=== PATIENT | male | born 1960 | race Caucasian/White ===

== ENCOUNTER 2018-03-10 07:20 | Emergency (ER) | payer MEDICAID, SELFPAY ==
--- NOTE | 2018-03-10 07:20 | DT_ITS ---
This patient was seen during an EMR downtime March 10, 2018 - March 17, 2018. This patient may have a combination of paper and electronic documentation or all paper documentation. All documentation is viewable within the e-chart portion of [email or web address] for each patient visit.
--- NOTE | 2018-03-10 08:25 | RAD_ITS ---
STUDY: X-RAY CHEST REASON FOR EXAM: Male, 57 years old. Cough. Chest pain. Feels like something is stuck in the throat. TECHNIQUE: PA and lateral views of the chest. COMPARISON: None. FINDINGS: The lungs are well-expanded. There is minimal peribronchial thickening. There is no demonstrated pleural abnormality. Normal size heart. Normal mediastinum and lashon. Normal visualized pulmonary arteries. Normal visualized aortic arch and descending thoracic aorta. Normal visualized thoracic spine. Normal visualized ribs, clavicles, and shoulders. There is no demonstrated abnormality of the visualized soft tissue structures of the upper abdomen. RAD/Chest PA and Lateral IMPRESSION: Question bronchitis. Electronically Signed: Gilberto Monreal DO at 14:56 EDT Tel [phone], Service support ,
--- NOTE | 2018-03-10 09:35 | CT_ITS ---
STUDY: CT SOFT TISSUE NECK WITH CONTRAST REASON FOR EXAM: Male, 57 years old. Foreign body sensation RADIATION DOSAGE (If Supplied By Facility): CTDIvol = ( 23.10 ) mGy, DLP = ( 657.47 ) mGycm TECHNIQUE: The patient was scanned in a multi-detector CT scanner. High resolution transaxial imaging was performed following intravenous administration of 75ml ml of Isovue 300 contrast material. Sagittal and coronal images were reconstructed. Individualized dose optimization techniques were used for this CT. COMPARISON: None. FINDINGS: Normal bilateral parotid glands. 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 Normal bilateral parapharyngeal spaces. Normal bilateral carotid spaces. Normal bilateral sublingual and submandibular glands and spaces. Normal visualized nasopharynx. Normal retropharyngeal space. Normal perivertebral space. Normal visualized bilateral faucial tonsils. The visualized tongue, tongue base and oropharynx are normal. The visualized cervical lymph nodes (levels I-) are within normal size limits, and maintain normal morphology. There is no demonstrated solid or cystic mass lesion. There is no abnormal contrast enhancement. Normal epiglottis, bilateral vallecula and hypopharynx. The pre-epiglottic and paraglottic adipose spaces are normal. Normal visualized bilateral piriform sinuses, aryepiglottic folds, vocal cords, and arytenoid-cricoid articulations. Normal subglottic trachea. Normal bilateral lobes of the thyroid gland. Normal visualized pulmonary apices. Normal visualized paranasal sinuses. Normal visualized cervical spine. No evidence of foreign body. CT/Soft Tissue Neck WITH Contrast IMPRESSION: Normal enhanced CT examination of the soft tissues of the neck. No evidence of foreign body. Electronically Signed: Leland Bustamante DO at 16:56 EDT Tel , Service support ,
[2018-03-13 11:06] LABS: Glucose 92 mg/dL (74-106)
[2018-03-13 11:07] LABS: Anion Gap 5 (5-15); BUN 10 mg/dL (7-18); BUN/Creat Ratio 9.7 RATIO (10-20); Calcium,Total 8.2 mg/dL (8.5-10.1); Chloride 109 mmol/L (98-107); Creatinine, Serum 1.03 mg/dL (0.70-1.30); EST Glomerular Filtration Rate 79 mL/min (>60); Est Glom Filt Rate - Afr Amer 96 mL/min (>60); Sodium Level 140 mmol/L (136-145)
[2018-03-13 17:02] LABS: Absolute Lymphocyte Count 1.05 X10^3/ul (0.83-4.51); Absolute Neutrophil Count 2.8 X10^3/uL (2.0-7.7); Basophil# 0.03 X10^3/uL; Basophil% 0.6 % (0-1); Eosinophil# 0.17 X10^3/uL; Eosinophils% 3.5 % (0-5); Hematocrit 46.2 % (40-54); Hemoglobin 16.2 g/dl (13.0-16.5); Lymphocyte # 1.05 X10^3/ul (4.0); Lymphocyte % 21.6 % (19-41); Mean Corp Hgb Conc 34.9 g/gl (32-36); Mean Corpuscular Hgb 33.1 pg (27.0-32.0); Mean Corpuscular Volume 94.2 fL (80-94); Mean Platelet Vol. 10.6 fl (6.2-12.0); Monocyte# 0.78 X10^3/uL; Neutrophil # 2.83 X10^3/uL (2.7-7.7); Neutrophil % 58.3 % (47-70); POSITIVE COUNT NO; POSITIVE DIFFERENTIAL NO; POSITIVE MORPHOLOGY NO; Platelet Count 211 K/mm3 (150-450); RBC Distribution Width CV 12.4 % (11.6-14.6); Red Blood Count 4.89 M/mm3 (4.6-6.2); White Blood Count 4.9 K/mm3 (4.4-11.0)
[2018-03-13 17:52] LABS: D-Dimer Quantitative (DVT/PE) < 0.27 FEU/ug/m (0.27-0.49)
--- NOTE | 2018-05-05 08:25 | ED.DCSUM_ITS ---
- ER Visit Summary Date of Service: 05/05/18 Chief Complaint: [Foreign body sensation] History of Present Illness: The patient is a 57 M [presents the emergency department with complaint of foreign body sensation in his throat. Patient states he had some nondescript chest discomfort yesterday that was made worse with breathing and cough. Patient felt at times like he was gasping for air. Patient denies any chest pain currently. Patient states that he is able to swallow water and is able to eat. 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 Patient has had a cough for about 3 weeks. Last night patient coughed and vomited and since then has had the sensation like there was something stuck in his throat. Patient denies any fevers. Patient's cough is been dry. Patient also states that he has had some pain in his right mid back for about 4 5 days as well. Patient not sure if he hurt his back working.] Physical Examination: [HEENT-PERRLA, EOMI. Cranial nerves II through XII grossly intact. TMs clear. Mucous membranes moist. No adenopathy. Cardiovascular-regular rate and rhythm without murmur or ectopy Lungs-clear to auscultation, chest wall stable without crepitus or subcu emphysema Abdomen-normoactive bowel sounds, soft, nontender, no rebound or rigidity, no peritoneal signs. Back exam-patient has no tenderness to palpation over the thoracic or lumbar spine. I am unable to reproduce patient's pain with palpation of his back. Patient has negative straight leg raises. Patient has normal deep tendon reflexes of plus 2 out of 4 bilaterally at the patella and Achilles. Patient has normal sensation. Extremities-intact ?4, normal range of motion, normal pulses, atraumatic] Test Results: [EKG obtained on arrival showed a sinus rhythm with a ventricular rate of 63 bpm. CBC with differential was unremarkable. Chemistries unremarkable. Troponin was less than 0.015. D-dimer was 0.18. Chest x-ray showed nothing acute. CT scan of soft tissue neck was unremarkable.] Emergency Department Course and Treatment: [Patient received 1 mg of Ativan IV and did have some improvement in symptomatology.] Treatment Plan: [Patient advised to follow-up with his primary care physician within next 3-5 days. Patient will be given a prescription for Duane Everett for cough and Zithromax.. Patient also referred to Dr. Sebastian who was on-call for pulmonology.] Disposition: [Discharged home in stable condition. Patient advised to return if increasing shortness of breath or condition should worsen in any way.] Impression: [Upper respiratory infection Foreign body sensation throat] This note was generated with [employer] dictation software. It may contain incorrect words, spelling, and punctuation that were not noted in review of the chart prior to signing ED Disposition - Plan for ED Patient: Disposition: Home or Assisted Living
== END 2018-03-10 10:20 | disposition home or self-care (01) ==
LOC: ED 03-12 11:33
PROVIDERS: Emergency Provider Emergency Medicine
DX: R09.89 Other specified symptoms and signs involving the circulatory and respiratory systems (principal); J06.9 Acute upper respiratory infection, unspecified; M54.9 Dorsalgia, unspecified
CPT/HCPCS: 70491; 71046; 80048; 84484; 85025; 85379; 93005; 96361; 96374; 99283; J7030; Q9967; A4216

== ENCOUNTER 2022-07-28 15:42 | Emergency (ER) | payer OTHER, MEDICAID, SELFPAY ==
[2022-07-28 15:43] VITALS: BP 128/79; PULSE 73; RESP 16; TEMP 36.5; O2SAT 99; BMI 29.0
[2022-07-28] MEDS: Ibuprofen 600 MG Tablet PO (16:03)
[2022-07-28] MEDS: predniSONE 20 MG Tablet 60 MG PO (16:03)
--- NOTE | 2022-07-28 16:12 | RAD_ITS ---
STUDY: X-RAY - THORACIC SPINE REASON FOR EXAM: Male, 61 years old. Right shoulder and neck pain for weeks. Pain is increased since the chiropractor 2 days ago. TECHNIQUE: 3 view(s) of the thoracic spine were obtained. COMPARISON: None. FINDINGS: Normal kyphosis of the thoracic spine. There is no substantial scoliosis. There is demineralization of the thoracic spine with endplate spondylosis. There is multilevel disc space narrowing of the thoracic spine. There is no evidence of acute fracture or loss of vertebral axial height. There is maintenance of normal alignment. The soft tissue structures are unremarkable. RAD/Thoracic Spine 3 Views IMPRESSION: Degenerative changes of the lumbar spine without acute fracture or subluxation. Electronically Signed: Gilberto Monreal DO at 16:28 EDT ,
--- NOTE | 2022-07-28 16:16 | EDS_ITS ---
HPI History of Present Illness Chief Complaint: Back Informant: patient and spouse/S.O. Narrative Narrative: Nontraumatic upper back pain and neck pain for the past month. Saw chiropractor a week ago had manipulation done neck is improved. Upper back still has d iscomfort. Reports pain down to his right elbow. No paresthesias or weakness. Taking [id number]-dffuamm back pain medicines. No history of gastric ulcers or kidney problems. Denies diabetes. Denies past medical history. Denies any difficulty walking. Prior similar symptoms: No PFSH PFSH Home Medications chlorpromazine 25 mg tablet 25 mg PO Q6H PRN hiccups #20 tabs 07/28/22 [Rx Last Taken Unknown] ibuprofen 600 mg tablet 600 mg PO 4X/DAY PRN Pain Or Fever #20 tabs 07/28/22 [Rx Last Taken Unknown] prednisone 20 mg tablet 60 mg PO DAILY #15 tabs 07/28/22 [Rx Last Taken Unknown] Allergy/AdvReac Type Severity Reaction Status Date / Time No Known Allergies Allergy Verified 07/28/22 15:42 Social History Smoking Status: Never smoker ROS ROS ED Constitutional Constitutional ED: Denies chills, fever(s) or sweats Eyes Eyes: Denies change in vision ENT ENT ED: Denies dysphagia or sore throat Cardiovascular Cardiovascular: Denies chest pain, leg edema, palpitations or racing heartbeat Respiratory/Chest Respiratory/Chest: Denies cough, dyspnea or dyspnea on exertion Gastrointestinal Gastrointestinal: Denies abdominal pain, diarrhea, nausea or vomiting Genitourinary Genitourinary ED: Denies dysuria, hematuria or urinary frequency Musculoskeletal Musculoskeletal: Reports back pain; Denies extremity pain or neck pain Integumentary Denies rash or wounds Neurologic Neurologic: Denies headache(s), paresthesias or weakness EXAM Physical Exam Const Vital Signs: 07/28/22 15:43 07/28/22 17:23 Temperature 97.7 F L Temperature Source Temporal Pulse Rate 73 Respiratory Rate 16 18 Blood Pressure 128/79 H Blood Pressure Mean 95 Pulse Ox 99 Oxygen Delivery Method Room Air Positive well nourished and well developed General Appearance ED: well developed and NAD HEENT Reports moist mucous membranes normocephalic and atraumatic Eyes PERRL, EOMs intact bilaterally and conjunctivae normal General Eye ED: Yes normal appearance of both eyes Neck no lymphadenopathy and supple Neck Narrative: Negative Spurling's test bilaterally. General: Negative for tenderness Chest Wall Chest: Negative for tenderness Resp normal respiratory effort and normal air movement Effort and Inspection: symmetric chest movement; Negative for respiratory distress Cardio regular rate, regular rhythm and no murmurs Peripheral Pulses: pulses 2+ throughout GI normal to inspection, nondistended, normoactive bowel sounds and non-tender Palpation: Negative for guarding or rebound tenderness present Back/Spine no CVA tenderness and no thoracic nor lumbar tenderness Back/Spine Narrative: No midline tenderness is parathoracic tenderness T1-T2 on the right side.. Extremity normal to inspection General Extremety ED: Negative for edema or tenderness General Extremity: Negative for edema Neuro oriented x3 and no sensory deficits noted Sensorium / Orientation: awake and alert Skin no rashes or lesions noted and no wounds MDM MDM MDM Narrative Medical decision making narrative: Nontraumatic upper thoracic pain. Tingling to his arm and with no weakness. No cervical tenderness currently. Not likely radicular pain from the back is no nerves innervates this area. Treated with ibuprofen and prednisone. 3 view thoracic x-rays obtained notes degenerative changes. Reevaluation had hiccups. No chest pains. Treated with Thorazine. Prescriptions for symptom control outpatient follow-up. Per significant other she is going to try to get him in with her PCP. Radiography Diagnostic Testing: Clinical Impression(s) from Imaging Studies Thoracic Spine X-Ray 07/28/22 16:12 IMPRESSION: Degenerative changes of the lumbar spine without acute fracture or subluxation. Electronically Signed: Gilberto Monreal DO at 16:28 EDT Reading Location ID and State: [address] [place] [address] Tel [phone], Service support , Discharge Plan Triage Chief Complaint: Back ED Provider: [facility] Dx/Rx/DC Orders Clinical Impression: Back pain, thoracic, Hiccup Instructions: ED Back Pain (Acute or Chronic), ED Hiccups Prescriptions: New prednisone 20 mg tablet 60 mg PO DAILY Qty: 15 0RF ibuprofen 600 mg tablet 600 mg PO 4X/DAY PRN (Reason: Pain Or Fever) Qty: 20 0RF chlorpromazine 25 mg tablet 25 mg PO Q6H PRN (Reason: hiccups) Qty: 20 0RF Primary Care Provider: NOT,DEFINED Referrals: NOT,DEFINED [Primary Care Provider] - Activity Restrictions/Additional Instructions: Thoracic x-ray notes degenerative changes. Take medications as prescribed. Follow-up with your doctor as an outpatient for reevaluation peer return if any worsening symptoms. Disposition Disposition: Home, Self Care Discharge Date/Time: 07/28/22 17:30
[2022-07-28 17:23] VITALS: RESP 18
[2022-07-28] MEDS: ChlorproMAZINE 25 MG Tablet PO (17:26)
== END 2022-07-28 17:30 | disposition home or self-care (01) ==
PROVIDERS: Emergency Provider Emergency Medicine; Visit Provider Emergency Medicine
DX: M54.6 Pain in thoracic spine (principal); R06.6 Hiccough
CPT/HCPCS: 72072; 99283

== ENCOUNTER 2024-09-21 21:10 | Inpatient (IN) | payer OTHER, SELFPAY ==
[2024-09-21 21:10] VITALS: BP 111/50; PULSE 80; RESP 26; TEMP 36.3; O2SAT 98
--- NOTE | 2024-09-21 21:12 | RAD_ITS ---
EXAM: XR LEFT TIBIA AND FIBULA, 2 VIEWS CLINICAL INDICATION: fall TECHNIQUE: Frontal and lateral views of the left tibia and fibula. COMPARISON: No relevant prior studies available. FINDINGS: BONES/JOINTS: A comminuted fracture of the distal left tibial is identified, with multiple fracture lines paralleling the long axis of the tibia; the fracture line disrupts the distal articulating surface of the tibia, with proximal extension of multiple fracture lines into the metaphysis and distal diaphysis. Lateral view shows 2.5 mm diastases of distal tibial fracture fragments, and with approximately 1.5 mm step off along the distal tibial articulating surface. No fibular fracture is identified. The clear space between the distal tibia and fibula is not abnormally widened. Joint space is preserved. There is no dislocation. Small plantar calcaneal spur is present. No sclerotic or destructive changes observed. SOFT TISSUES: Soft tissue swelling noted anterior to the ankle. No radiopaque foreign body. RAD/Tibia & Fibula 2 Views IMPRESSION: 1. Intra-articular fracture of the distal left tibia with slight step-off along the distal tibial articulating surface. 2. No distal fibular fracture or ankle dislocation identified. Electronically Signed: Kishor Zepeda MD at 22:24 EST ,
--- NOTE | 2024-09-21 22:33 | EX.ED.GENINJ ---
HPI History of Present Illness Chief Complaint: Fall Informant: patient and spouse/S.O. Narrative Narrative: Brought in by private vehicle her spouse who left lower leg injury. Jumped off a 2 foot workbench in the garage 1 hour prior to arrival. Crawled into the house. He fell on his elbow. No head injuries. States may had a fracture of the thumb in the past. Does not follow an orthopedist. No allergies. Prior similar symptoms: No PFSH PFSH Home Medications ?Medication ?Instructions ?Recorded ?Last Taken ?Type NK 09/22/24 Unknown History Allergy/AdvReac Type Severity Reaction Status Date / Time No Known Allergies Allergy Verified 09/21/24 21:12 Social History Smoking Status: Never smoker ROS ROS ED Constitutional Constitutional ED: Denies chills, fever(s) or sweats Eyes Eyes: Denies change in vision ENT ENT ED: Denies dysphagia or sore throat Cardiovascular Cardiovascular: Denies chest pain, leg edema, palpitations or racing heartbeat Respiratory/Chest Respiratory/Chest: Denies cough, dyspnea or dyspnea on exertion Gastrointestinal Gastrointestinal: Denies abdominal pain, diarrhea, nausea or vomiting Genitourinary Genitourinary ED: Denies dysuria, hematuria or urinary frequency Musculoskeletal Musculoskeletal: Reports extremity pain; Denies back pain or neck pain Integumentary Reports Abrasions; Denies rash or wounds Neurologic Neurologic: Denies headache(s), paresthesias or weakness EXAM Physical Exam Const Vital Signs: 09/21/24 21:10 09/21/24 22:46 09/21/24 23:10 Temperature 97.4 F L Temperature Source Temporal Pulse Rate 80 70 Respiratory Rate 26 H 18 Respiratory Effort Normal Non-Labored Respiratory Depth Normal Respiratory Pattern Normal Blood Pressure 111/50 L 110/78 Blood Pressure Mean 70 88 Pulse Ox 98 96 Oxygen Delivery Method Room Air Room Air Room Air 09/22/24 01:00 Temperature Temperature Source Pulse Rate 92 Respiratory Rate 16 Respiratory Effort Respiratory Depth Respiratory Pattern Blood Pressure 110/71 Blood Pressure Mean 84 Pulse Ox 92 Oxygen Delivery Method Room Air Positive well nourished and well developed Constitutional Narrative: GCS 15 General Appearance ED: well developed HEENT Reports moist mucous membranes normocephalic and atraumatic Eyes EOMs intact bilaterally and conjunctivae normal General Eye ED: Yes normal appearance of both eyes Neck no lymphadenopathy and supple General: Negative for tenderness Chest Wall inspection of chest normal and palpation of chest normal Chest: Negative for tenderness Resp normal respiratory effort and normal air movement Effort and Inspection: symmetric chest movement; Negative for respiratory distress Cardio regular rate, regular rhythm and no murmurs Peripheral Pulses: pulses 2+ throughout GI normal to inspection, nondistended, normoactive bowel sounds and non-tender Palpation: Negative for guarding or rebound tenderness present Back/Spine no CVA tenderness and no thoracic nor lumbar tenderness Extremity Extremity Narrative: Left lower extremity: Negative logroll no knee tenderness no deformities or swelling to the distal leg with tenderness. Skin intact. No foot tenderness. Soft compartments calf and thigh. Right lower extremity: Nontender. Pulse intact distally. Upper extremities: Full range of motion all tenderness. There is abrasion noted to the left elbow with no swelling or pain. Pulses intact distally. General Extremety ED: Yes tenderness; Negative for edema General Extremity: Negative for edema Neuro oriented x3 and no sensory deficits noted Sensorium / Orientation: awake and alert Skin no rashes or lesions noted and no wounds MDM MDM MDM Narrative Medical decision making narrative: Interventions / MDM: Differential diagnosis: Closed tibia fracture, fall Diagnosis considered but do not suspect: No clinical compartment syndrome My EKG interpretation: N/A Imaging independently reviewed and interpreted by myself: Left tib-fib 2 views: Distal tibial fracture intra-articular with no displacement, slight step-off of the distal tibia articular surface per radiology. 1 view oblique ankle: No acute process. CTA lower extremity per radiology multiple Linear fractures extend superior anterior and posterior cortex of distal fibula and lateral cortex of the distal tibia. External documents reviewed: N/A Test considered but not ordered:N/A ED course: Due to busy department, nursing triage obtained tib-fib films noting the fracture. Patient ordered for IM morphine. Will prep for splinting. Abrasions to left elbow no other injuries. No bony tenderness to warrant any imaging. Splinting: Nursing assistance. Nylon sleeve was placed, Kerlix dressing increased padding at the ankle region. A 5 inch posterior plaster splint along with 2 inch stirrups were placed for stabilization. Splinting was stabilized with Zbigniew wrap. Neurovascular intact post splinting. After splinting oblique ankle films were added, obscured from padding however no clear disruption noted. He was given additional IM morphine prior to x-rays. Patient had pain anytime he moved his leg therefore difficult to send home with nonweightbearing and sees having pain with movement. IV established with labs. I discussed with on-call lead refinery supervisor Dr. Veloz will admit under his service for further pain control and further management inpatient. Re-evaluation: stable Disposition discussed with patient/family/significant other: Patient Case discussed with consulting clinician: N/A This note was generated with [employer] dictation software. It may contain incorrect words, spelling, and punctuation that were not noted in checking the note before signing. Lab Data Attestation: I reviewed the patient's lab results. Labs: Laboratory Results - last 24 hr 09/22/24 01:00 WBC 14.0 H RBC 4.87 Hgb 16.3 Hct 46.3 MCV 95.1 H MCH 33.5 H MCHC 35.2 RDW Std Deviation 42.1 RDW Coeff of Arturo 12.1 Plt Count 242 MPV 9.7 Immature Gran % (Auto) 0.300 Neut % (Auto) 81.7 H Lymph % (Auto) 10.9 L [place] % (Auto) 6.3 Eos % (Auto) 0.4 Baso % (Auto) 0.4 Absolute Neuts (auto) 11.5 H Absolute Lymphs (auto) 1.53 Nucleated RBC % 0 PT 14.8 INR 1.2 APTT 25.6 Sodium 141 Potassium 4.1 Chloride 112 H Carbon Dioxide 24.0 Anion Gap 6 BUN 17 Creatinine 1.22 Estim Creat Clear Calc 70.22 Est GFR (MDRD) Af Amer 77 Est GFR (MDRD) Non-Af 64 BUN/Creatinine Ratio 13.9 Glucose 114 H Calcium 8.8 Blood Type O NEGATIVE Antibody Screen NEGATIVE Radiography Diagnostic Testing: Clinical Impression(s) from Imaging Studies Tibia/Fibula X-Ray 09/21/24 21:12 IMPRESSION: 1. Intra-articular fracture of the distal left tibia with slight step-off along the distal tibial articulating surface. 2. No distal fibular fracture or ankle dislocation identified. Electronically Signed: Kishor Zepeda MD at 22:24 EST , Ankle X-Ray 09/21/24 23:49 IMPRESSION: undefined Lower Extremity CT 09/22/24 01:42 IMPRESSION: Multiple linear fracture lines of the distal tibia , disrupting the distal tibial articulating surface, and with mild step off along the articulating surface of the tibial plafond. Electronically Signed: Kishor Zepeda MD at 5:35 EST , Discharge Plan Dx/Rx/DC Orders Clinical Impression: Fracture of tibia, left, closed, Fall, Leg pain, left Disposition Disposition: Acute Care Hospital [facility] Discharge Date/Time: 09/22/24 02:29
[2024-09-21] MEDS: Morphine 4 MG/ML Syringe IM ×2 (22:43→23:30)
[2024-09-21 23:10] VITALS: BP 110/78; PULSE 70; RESP 18; O2SAT 96
[2024-09-21 23:29] VITALS: BMI 29.5
--- NOTE | 2024-09-21 23:49 | RAD_ITS ---
EXAM: XR LEFT ANKLE, 2 VIEWS CLINICAL INDICATION: fracture -- oblique view TECHNIQUE: Frontal and lateral views of the left ankle. COMPARISON: Left ankle and left tibia/fibular radiographs of this date. FINDINGS: Single view of the ankle shows interval placement of cast material, which obscures osseous anatomic detail. Ankle joint space is maintained. No dislocation is noted. No malalignment of the distal tibial fracture fragments is identified on this single view, when allowing for the overlying cast material. Electronically Signed: Kishor Zepeda MD at 1:45 EST , RAD/Ankle 2 Views IMPRESSION: undefined
[2024-09-22] VITALS (13 sets, daily range): BP systolic 99–132; BP diastolic 61–79; PULSE 67–93; RESP 14–18; TEMP 36.1–37.3; O2SAT 92–98; BMI 28.5; BMI 28.4
[2024-09-22 01:15] LABS: Absolute Lymphocyte Count 1.53 X10^3/uL (0.83-4.51); Absolute Neutrophil Count 11.5 X10^3/uL (2.0-7.7); Basophil# 0.05 X10^3/uL; Basophil% 0.4 % (0-1); Eosinophil# 0.06 X10^3/uL; Eosinophils% 0.4 % (0-5); Hematocrit 46.3 % (40-54); Hemoglobin 16.3 g/dL (13.0-16.5); Lymphocyte # 1.53 X10^3/ul (0.83-4.51); Lymphocyte % 10.9 % (19-41); Mean Corp Hgb Conc 35.2 g/dL (32-36); Mean Corpuscular Hgb 33.5 pg (27.0-32.0); Mean Corpuscular Volume 95.1 fL (80-94); Mean Platelet Vol. 9.7 fl (6.2-12.0); Monocyte# 0.89 X10^3/uL; Monocyte% 6.3 % (0-10); NRBC Flagged by Analyzer 0 % (0-5); Neutrophil # 11.45 X10^3/uL (2.7-7.7); Neutrophil % 81.7 % (47-70); Platelet Count 242 K/mm3 (150-450); RBC Distribution Width CV 12.1 % (11.6-14.6); RBC Distribution Width SD 42.1 fl (35.1-43.9); Red Blood Count 4.87 M/mm3 (4.6-6.2)
[2024-09-22 01:25] LABS: International Normalized Ratio 1.2; Prothrombin Time (Protime)PT. 14.8 SECONDS (11.7-14.9)
[2024-09-22 01:26] LABS: Partial Thromboplast Time 25.6 Seconds (24.1-36.2)
[2024-09-22 01:38] LABS: Anion Gap 6 (5-15); BUN 17 mg/dL (7-18); BUN/Creat Ratio 13.9 RATIO (10-20); Calcium,Total 8.8 mg/dL (8.5-10.1); Chloride 112 mmol/L (98-107); Creatinine, Serum 1.22 mg/dL (0.70-1.30); EST Glomerular Filtration Rate 64 mL/min (>60); Est Glom Filt Rate - Afr Amer 77 mL/min (>60); Estimated Creatinine Clearance 70.22 ml/min; Glucose 114 mg/dL (74-106); Potassium 4.1 mmol/L (3.5-5.1); Sodium Level 141 mmol/L (136-145)
--- NOTE | 2024-09-22 01:42 | CT_ITS ---
EXAM: CT LEFT LOWER EXTREMITY WITHOUT INTRAVENOUS CONTRAST CLINICAL INDICATION: fracture -- Include distal half of tib-fib into ankle TECHNIQUE: Helically acquired images were obtained of the left lower extremity without intravenous contrast. 2-D reformats were performed by the technologist. This CT exam was performed using one or more of the following dose reduction techniques: automated exposure control, adjustment of the mA and/or kV according to patient size, and/or use of iterative reconstruction technique. RADIATION DOSE: Total DLP: 507.27 mGy-cm. COMPARISON: Ankle radiographs of 09/21/2024. FINDINGS: BONES/JOINTS: Multiple fracture lines extend through the distal tibia, paralleling the long axis of the tibia. Numerous fracture lines disrupt distal tibial articulating surface of the tibial plafond ; the most prominent fracture line extends obliquely through the distal tibia, entering the joint space at the junction of the medial malleolus and tibial plafond, and with up to 5.5 mm separation of the fracture fragments. There is slight cortical step off along the articulating surface at this level. S A linear fracture line extends into the more posterior aspect of the distal tibial articulating surface, with 1 mm step off along the articulating surface at this level. Linear fracture lines extend superiorly into the anterior and posterior cortex of the distal tibial shaft as well as into the lateral cortex of the distal tibial shaft. The distal fibula is intact. The distal tibial-fibular synchondrosis is not abnormally widened. No avulsion fracture of the medial malleolus is noted. The talar dome is intact. Ankle joint space is preserved/symmetric. A small plantar calcaneal spur is noted. No calcaneal fracture is seen. The cuboid, cuneiforms, and tarsal navicular are intact. No dislocation is noted. SOFT TISSUES: Soft tissue swelling surrounds the ankle. Cast material is in place about the ankle. CT/Extremity Lower without Contra IMPRESSION: Multiple linear fracture lines of the distal tibia , disrupting the distal tibial articulating surface, and with mild step off along the articulating surface of the tibial plafond. Electronically Signed: Kishor Zepeda MD at 5:35 EST ,
[2024-09-22] MEDS: HYDROmorphone 0.5 MG/0.5 ML SYRINGE IV (02:15)
--- NOTE | 2024-09-22 02:16 | HP.PCM_ITS ---
[facility] - General General Date of Admission: 09/22/24 Chief Complaint: fractured ankle, lower leg right HPI Narrative KALIE ANDREW, is a 64 M who presents with comminuted distal tibial fx and ankle fracture of the right lower leg from a mechanical fall after jumping off his work bench. Patient healthy and in severe pain and will need surgery to stabilize the fracture of the right lower leg PFSH Home Medications ?Medication ?Instructions ?Recorded ?Last Taken ?Type NK 09/22/24 Unknown History Allergy/AdvReac Type Severity Reaction Status Date / Time No Known Allergies Allergy Verified 09/21/24 21:12 no significant family history Social History Smoking Status: Never smoker Vital Signs Vital Signs Vital Signs: 09/21/24 21:10 09/21/24 22:46 09/21/24 23:10 Temperature 97.4 F L Temperature Source Temporal Pulse Rate 80 70 Respiratory Rate 26 H 18 Respiratory Effort Normal Non-Labored Respiratory Depth Normal Respiratory Pattern Normal Blood Pressure 111/50 L 110/78 Blood Pressure Mean 70 88 Pulse Ox 98 96 Oxygen Delivery Method Room Air Room Air Room Air 09/22/24 01:00 09/22/24 02:06 Temperature 99.1 F Temperature Source Pulse Rate 92 89 Respiratory Rate 16 16 Respiratory Effort Respiratory Depth Respiratory Pattern Blood Pressure 110/71 99/74 Blood Pressure Mean 84 82 Pulse Ox 92 93 Oxygen Delivery Method Room Air Weight Weight: 93.4 kg Body Mass Index (BMI) 29.5 Physical Exam Const alert and oriented x3 HEENT normocephalic, head/scalp atraumatic, hearing grossly normal bilaterally, external ears normal, EAC's normal, TM's normal bilaterally, external nose normal, nasal mucous membranes and turbinates normal, moist oral mucous membranes, oropharynx normal, dentition normal and gingiva normal Eyes PERRL, EOMs intact bilaterally, conjunctivae normal, no scleral icterus, no papilledema, normal visual san by confrontation and fundi normal bilaterally Chest inspection of chest normal, palpation of chest normal, inspection of breasts normal and palpation of breasts normal Resp normal respiratory effort, normal air movement, no retractions, no use of accessory muscles, clear to auscultation bilaterally and percussion normal Cardio regular rate, regular rhythm, S1 normal heart sound, S2 normal heart sound, no murmurs, no rub, no gallops, no clicks, no JVD, peripheral pulses 2+ throughout and diaphoretic Results Lab / Micro Data 09/22/24 01:00 09/22/24 01:00 Labs: Laboratory Results - last 24 hr 09/22/24 01:00: WBC 14.0 H, RBC 4.87, Hgb 16.3, Hct 46.3, MCV 95.1 H, MCH 33.5 H , MCHC 35.2, RDW Std Deviation 42.1, RDW Coeff of Arturo 12.1, Plt Count 242, MPV 9.7, Immature Gran % (Auto) 0.300, Neut % (Auto) 81.7 H, Lymph % (Auto) 10.9 L, [place] % (Auto) 6.3, Eos % (Auto) 0.4, Baso % (Auto) 0.4, Absolute Neuts (auto) 11.5 H, Absolute Lymphs (auto) 1.53, Nucleated RBC % 0, PT 14.8, INR 1.2, APTT 25.6, Sodium 141, Potassium 4.1, Chloride 112 H, Carbon Dioxide 24.0, Anion Gap 6, BUN 17, Creatinine 1.22, Estim Creat Clear Calc 70.22, Est GFR (MDRD) Af Amer 77, Est GFR (MDRD) Non-Af 64, BUN/Creatinine Ratio 13.9, Glucose 114 H, Calcium 8.8, Blood Type O NEGATIVE, Antibody Screen NEGATIVE Imaging Radiology Impression Tibia/Fibula X-Ray 09/21/24 21:12 IMPRESSION: 1. Intra-articular fracture of the distal left tibia with slight step-off along the distal tibial articulating surface. 2. No distal fibular fracture or ankle dislocation identified. Electronically Signed: Kishor Zepeda MD at 22:24 EST , Ankle X-Ray 09/21/24 23:49 IMPRESSION: undefined Assessment & Plan Assessment/Plan (1) Pilon fracture of right tibia: PLAN: plan for orif and closed reduction with internal fixation right lower leg saturday will stabilize with external fixation with possible open outpatient (2) Pain in right lower leg: (3) Fall (on)(from) incline, initial encounter:
[2024-09-22] MEDS: oxyCODONE HCl Cr 10 MG Tablet 20 MG PO ×3 (02:46→22:40)
[2024-09-22] MEDS: Acetaminophen 500 MG Tablet 1000 MG PO ×3 (05:42→22:40)
[2024-09-22] MEDS: HYDROmorphone 1 MG/ML Syringe IV (05:47)
[2024-09-22 07:00] LABS: Absolute Neutrophil Count 6.6 X10^3/uL (2.0-7.7); Basophil# 0.05 X10^3/uL; Basophil% 0.5 % (0-1); Eosinophil# 0.06 X10^3/uL; Eosinophils% 0.7 % (0-5); Hematocrit 44.3 % (40-54); Hemoglobin 15.9 g/dL (13.0-16.5); Lymphocyte % 18.4 % (19-41); Mean Corp Hgb Conc 35.9 g/dL (32-36); Mean Corpuscular Hgb 34.1 pg (27.0-32.0); Mean Corpuscular Volume 95.1 fL (80-94); Mean Platelet Vol. 9.7 fl (6.2-12.0); Monocyte# 0.79 X10^3/uL; Monocyte% 8.6 % (0-10); NRBC Flagged by Analyzer 0 % (0-5); Neutrophil # 6.59 X10^3/uL (2.7-7.7); Neutrophil % 71.5 % (47-70); Platelet Count 231 K/mm3 (150-450); RBC Distribution Width SD 42.5 fl (35.1-43.9); Red Blood Count 4.66 M/mm3 (4.6-6.2); White Blood Count 9.2 K/mm3 (4.4-11.0)
[2024-09-22] MEDS: oxyCODONE 5 MG Tablet 10 MG PO (07:48)
[2024-09-22 08:00] LABS: Anion Gap 3 (5-15); BUN 14 mg/dL (7-18); BUN/Creat Ratio 14.1 RATIO (10-20); Calcium,Total 8.6 mg/dL (8.5-10.1); Chloride 112 mmol/L (98-107); Creatinine, Serum 0.99 mg/dL (0.70-1.30); EST Glomerular Filtration Rate 81 mL/min (>60); Est Glom Filt Rate - Afr Amer 97 mL/min (>60); Estimated Creatinine Clearance 85.25 ml/min; Glucose 103 mg/dL (74-106); Sodium Level 139 mmol/L (136-145)
[2024-09-22] MEDS: 0.9% Saline Lock 10 ML Syringe IV ×3 (10:01→22:45)
[2024-09-22] MEDS: Ondansetron 4 MG/2 ML Vial IV ×3 (10:01→22:44)
[2024-09-22] MEDS: Enoxaparin 40 MG/0.4 ML Syringe SC (10:03)
--- NOTE | 2024-09-22 10:30 | CASEMGMT ---
NANCY ALMEIDA Assessment: Face to Face with pt for initial transition planning/care coordination assessment. RN JUAN PABLO introduced self and role at [facility], pt voices understanding and consents to assessment. Pt is A&O x4 and answers all questions appropriately at this time. Pt lying in bed in no distress. Care providers, pharmacy, and demographics verified/updated. Admitting Dx: Lower leg ankle right closed fracture Strata Score: 1 PCP:Jania Specialists:Denies Preferred Pharmacy:[facility] Insurance: MMO Prescription Benefit: yes LNOK: Harriet Cowart, Living Arrangements: Pt lives with , niece and son in a single story home with a ramp to enter or 3 steps with a rail. Pt reports he is typically I in ADLs and denies concerns at home. Transportation: Pt drives self and denies concerns with transportation. DME:w/c, shower chair HHC/SNF: Denies hx of Pt states no concerns with going home at time of dc. Pt to have MEDIA SENIOR RECRUITER CM to follow therapy post surgery for recommendations and DME needs. Provided pt with a verbal local in network list of DME companies should pt need DME, pt chose [employer]. Pt states no further concerns/needs. Advised pt to ask CM if any further question/concerns/needs arise, voices understanding. Pt Goal: Home Plan: Home pending surgery, therapy evals and course of hospitalization. Follow for DME needs. Soraya CRUZ CM
--- NOTE | 2024-09-22 18:35 | HP.PCM_ITS ---
HPI - General General Date of Admission: 09/22/24 Chief Complaint: fractured ankle, lower leg left HPI Narrative KALIE ANDREW, is a 64 M who presents pilon fracture of the tibia post fall from work bench [facility] Home Medications ?Medication ?Instructions ?Recorded ?Last Taken ?Type NK 09/22/24 Unknown History Allergy/AdvReac Type Severity Reaction Status Date / Time No Known Allergies Allergy Verified 09/21/24 21:12 Family History no significant family his Social History Smoking Status: Never smoker Vital Signs Vital Signs Vital Signs: 09/21/24 21:10 09/21/24 22:46 09/21/24 23:10 Temperature 97.4 F L Temperature Source Temporal Pulse Rate 80 70 Pulse Strength Respiratory Rate 26 H 18 Respiratory Effort Normal Non-Labored Respiratory Depth Normal Respiratory Pattern Normal Blood Pressure 111/50 L 110/78 Blood Pressure Mean 70 88 Blood Pressure Source Blood Pressure Position Blood Pressure Location Pulse Ox 98 96 Oxygen Delivery Method Room Air Room Air Room Air 09/22/24 01:00 09/22/24 02:06 09/22/24 02:42 Temperature 99.1 F Temperature Source Pulse Rate 92 89 Pulse Strength Respiratory Rate 16 16 Respiratory Effort Respiratory Depth Respiratory Pattern Blood Pressure 110/71 99/74 Blood Pressure Mean 84 82 Blood Pressure Source Blood Pressure Position Blood Pressure Location Pulse Ox 92 93 Oxygen Delivery Method Room Air Room Air 09/22/24 02:53 09/22/24 09:00 09/22/24 10:27 Temperature 98.5 F 97.9 F Temperature Source Oral Oral Pulse Rate 93 84 Pulse Strength Normal (2+) Respiratory Rate 18 14 Respiratory Effort Respiratory Depth Respiratory Pattern Blood Pressure 132/61 H 116/77 Blood Pressure Mean 84 90 Blood Pressure Source Monitor Monitor Blood Pressure Position Semi-Fowlers Semi-Fowlers Blood Pressure Location Right Arm Left Arm Pulse Ox 94 96 Oxygen Delivery Method Room Air Room Air 09/22/24 10:29 09/22/24 16:16 Temperature 98.6 F Temperature Source Oral Pulse Rate 91 Pulse Strength Respiratory Rate 18 Respiratory Effort Normal Non-Labored Respiratory Depth Normal Respiratory Pattern Normal Blood Pressure 119/75 Blood Pressure Mean 89 Blood Pressure Source Monitor Blood Pressure Position Semi-Fowlers Blood Pressure Location Right Arm Pulse Ox 98 Oxygen Delivery Method Room Air Room Air Weight Weight: 90.2 kg Body Mass Index (BMI) 28.4 Physical Exam Narrative alert active and oriented, has a spinal and plan for surgical correction left foot and plan for closed redutction andpinnin of the left leg Const alert, oriented x3, no apparent distress, average body habitus, no limitations, healthy appearing and well nourished Extremity Extremity Narrative: let tibia comminuted fx left lower leg Results Lab / Micro Data 09/22/24 06:23 09/22/24 06:23 Labs: Laboratory Results - last 24 hr 09/22/24 01:00: WBC 14.0 H, RBC 4.87, Hgb 16.3, Hct 46.3, MCV 95.1 H, MCH 33.5 H , MCHC 35.2, RDW Std Deviation 42.1, RDW Coeff of Arturo 12.1, Plt Count 242, MPV 9.7, Immature Gran % (Auto) 0.300, Neut % (Auto) 81.7 H, Lymph % (Auto) 10.9 L, [place] % (Auto) 6.3, Eos % (Auto) 0.4, Baso % (Auto) 0.4, Absolute Neuts (auto) 11.5 H, Absolute Lymphs (auto) 1.53, Nucleated RBC % 0, PT 14.8, INR 1.2, APTT 25.6, Sodium 141, Potassium 4.1, Chloride 112 H, Carbon Dioxide 24.0, Anion Gap 6, BUN 17, Creatinine 1.22, Estim Creat Clear Calc 70.22, Est GFR (MDRD) Af Amer 77, Est GFR (MDRD) Non-Af 64, BUN/Creatinine Ratio 13.9, Glucose 114 H, Calcium 8.8, Blood Type O NEGATIVE, Antibody Screen NEGATIVE 09/22/24 06:23: WBC 9.2, RBC 4.66, Hgb 15.9, Hct 44.3, MCV 95.1 H, MCH 34.1 H, MCHC 35.9, RDW Std Deviation 42.5, RDW Coeff of Arturo 12.0, Plt Count 231, MPV 9.7, Immature Gran % (Auto) 0.300, Neut % (Auto) 71.5 H, Lymph % (Auto) 18.4 L, [place]assen % (Auto) 8.6, Eos % (Auto) 0.7, Baso % (Auto) 0.5, Absolute Neuts (auto) 6.6, Absolute Lymphs (auto) 1.70, Nucleated RBC % 0, Sodium 139, Potassium 4.0, Chloride 112 H, Carbon Dioxide 24.0, Anion Gap 3 L, BUN 14, Creatinine 0.99, Estim Creat Clear Calc 85.25, Est GFR (MDRD) Af Amer 97, Est GFR (MDRD) Non-Af 81, BUN/Creatinine Ratio 14.1, Glucose 103, Calcium 8.6 Imaging Radiology Impression Tibia/Fibula X-Ray 09/21/24 21:12 IMPRESSION: 1. Intra-articular fracture of the distal left tibia with slight step-off along the distal tibial articulating surface. 2. No distal fibular fracture or ankle dislocation identified. Electronically Signed: Kishor Zepeda MD at 22:24 EST , Ankle X-Ray 09/21/24 23:49 IMPRESSION: undefined Lower Extremity CT 09/22/24 01:42 IMPRESSION: Multiple linear fracture lines of the distal tibia , disrupting the distal tibial articulating surface, and with mild step off along the articulating surface of the tibial plafond. Electronically Signed: Kishor Zepeda MD at 5:35 EST , Assessment & Plan Assessment/Plan (1) Leg pain, left: PLAN: Plan plan for ORIF and closed reduction of the tibia left ankle
[2024-09-22] MEDS: Bupivacaine Mpf 0.5% 30 ML VIAL (19:05)
--- NOTE | 2024-09-22 19:20 | RAD_ITS ---
PROCEDURE: Fluoroscopic services for external fixator placement. DATE OF EXAMINATION: September 22, 2024. INDICATION: Male, 64 years old. Distal tibial fracture. FLUOROSCOPY TIME (if supplied): (52.9 seconds) minutes/seconds. 1.53 mGy. 7 fluoroscopic images were provided. RAD/Ankle 2 Views IMPRESSION: Intraoperative fluoroscopic services provided for external fixator for distal tibial fracture. Electronically Signed: Pedro Toure MD at 8:59 EST ,
--- NOTE | 2024-09-22 20:12 | PCM.POST.ANE ---
Anesthesia: Postop Eval I Current Vital Signs Temperature: 97 F Pulse Rate: 82 Blood Pressure: 114/78 Respiratory Rate: 17 Pulse Ox: 96 Assessment Airway patent: Yes Spontaneous unlabored respirations: Yes nausea: No Vomiting: No Anesthesia Complication: No Fluid Hydration Crystalloid volume administer (ml): 1,000 Total IV fluid infused: 1,000 Progress Note Anesthesia document: Postop Eval 1 completed: Yes
--- NOTE | 2024-09-22 20:13 | POSTOPAN2_ITS ---
Anesthesia Postop Eval I Sum Postop Eval Completion status Anesthesia document: Postop Eval 1 completed: Yes Anesthesia Postop Eval I Summary Anesthesia Postop Eval I Summary: Anesthesia Postop Eval I: Assessment Summary Airway patent Yes 09/22/24 20:12 SOFTWARE PRODUCT SPECIALIST.[email or web address] Spontaneous unlabored Yes 09/22/24 20:12 SOFTWARE PRODUCT SPECIALIST.[email or web address] respirations Mental status nausea No 09/22/24 20:12 SOFTWARE PRODUCT SPECIALIST.JCOTE Vomiting No 09/22/24 20:12 SOFTWARE PRODUCT SPECIALIST.JCOTE Anesthesia Postop Eval I: Fluid Summary Crystalloid volume administer 1,000 09/22/24 20:12 SOFTWARE PRODUCT SPECIALIST.JCOTE (ml) Colloids volume administered ( ml) Blood Product volume administered (ml) Total IV fluid infused 1,000 09/22/24 20:12 SOFTWARE PRODUCT SPECIALIST.JCOTE Anesthesia Postop Eval I: Summary Notes Anesthesia Complication No 09/22/24 20:12 SOFTWARE PRODUCT SPECIALIST.JCOTE Anesthesia Complication Comment: Post-operative progress note Anesthesia: Postop Eval II Evaluation Mental status: Awake Pain Level: 0 nausea: No Vomiting: No
--- NOTE | 2024-09-22 20:13 | PCM.POSTANE2 ---
Anesthesia Postop Eval I Sum Postop Eval Completion status Anesthesia document: Postop Eval 1 completed: Yes Anesthesia Postop Eval I Summary Anesthesia Postop Eval I Summary: Anesthesia Postop Eval I: Assessment Summary Airway patent Yes 09/22/24 20:12 COMPUTATIONAL [email or web address].[email or web address] Spontaneous unlabored Yes 09/22/24 20:12 COMPUTATIONAL BIOLOGIST.JCOTE respirations Mental status nausea No 09/22/24 20:12 COMPUTATIONAL BIOLOGIST.JCOTE Vomiting No 09/22/24 20:12 COMPUTATIONAL BIOLOGIST.JCOTE Anesthesia Postop Eval I: Fluid Summary Crystalloid volume administer 1,000 09/22/24 20:12 COMPUTATIONAL [email or web address].JCOTE (ml) Colloids volume administered ( ml) Blood Product volume administered (ml) Total IV fluid infused 1,000 09/22/24 20:12 COMPUTATIONAL BIOLOGIST.JCOTE Anesthesia Postop Eval I: Summary Notes Anesthesia Complication No 09/22/24 20:12 COMPUTATIONAL BIOLOGIST.JCOTE Anesthesia Complication Comment: Post-operative progress note Anesthesia: Postop Eval II Evaluation Mental status: Awake Pain Level: 0 nausea: No Vomiting: No
--- NOTE | 2024-09-22 20:33 | RAD_ITS ---
STUDY: X-RAY - LEFT ANKLE REASON FOR EXAM: Male, 64 years old. Post op reduction TECHNIQUE: 4 view(s) of the ankle. COMPARISON: None. FINDINGS: The patient is status post external fixation of the distal tibial fracture. There is good alignment. RAD/Ankle min 3 Views IMPRESSION: External fixation of the distal tibial fracture. There is good alignment. Electronically Signed: Pedro Toure MD at 9:24 EST ,
--- NOTE | 2024-09-22 20:34 | PCM.OPRPT ---
Operative Report (Standard) Operative Information Date of Procedure: 09/22/24 Pre-Operative Diagnosis: Ankle fracture left lower extremity, Comminuted pilon fracture Subluxation left ankle Post-Operative Diagnosis: Same as above Surgery/Procedure Performed: 1. Closed reduction left ankle, distal tibial plafond and fracture relocation 2. Application of external multiplanar fixation frame 3. Percutaneous pinning of fracture fragments elementary school social worker: No Type of Anesthesia: MAC and Spinal RN Documented Start/Stop Times: Operation Date: 09/22/24 17:45 Case Time Into Pre-Op 09/22/24 17:02 Out of Pre-Op 09/22/24 18:43 Anesthesia Start 09/22/24 18:44 Into Room 09/22/24 18:44 Procedure Start 09/22/24 19:05 Procedure End 09/22/24 20:04 Anesthesia End 09/22/24 20:08 Into Recovery 09/22/24 20:08 Out of Room 09/22/24 20:08 Out of Recovery 09/22/24 20:25 Procedure Start Time: 19:05 Procedure Stop Time: 20:04 Select all DRAINS/GRAFTS/IMPLANTS that apply: None Estimated Blood Loss: 20 cc Specimen collected: No Description of surgery: Patient was seen as a ER consultation from last night at 1:30 in the morning for a fracture in that which the patient fell from a height at home fracturing his tibia is a closed fracture with severe pain the patient was then placed in a sugar-tong plaster splint and I admitted him last night. At this point the patient does require then closed reduction internal fixation of the ankle and plan for then ORIF in a later date since the skin looks good I think he can tolerate this within the next few days. Currently the patient does feel stable he did have pain I saw him in the preoperative holding area where I spoke with him and his patient then understands all risks complications and benefits of the surgical procedure all questions answered no guarantees given or implied patient was then placed in the operating table in the normal supine position Ancef was given prior to the procedure 2 g the left lower extremity was then scrubbed prepped and draped usual aseptic technique. Timeout was then performed. Attention then directed to the anterior tibia using fluoroscopy I was able to find the distal and the proximal metadiaphyseal area of the fracture I then inserted 2 threaded pins from the pin to bar frame by [employer] measuring 5 x 30 they were bicortical I checked on fluoroscopy and made them parallel with a parallel guide I then applied a parallel clamp with 2 wings on it medial and laterally. Next lateral incision was made along the calcaneus I then inserted transfixion pins all the way into the calcaneus from medial to lateral. During that time there was a puncture of a vein there was bleeding I had to cauterize it and we need to close this incision with 3-0 Prolene. After bleeding was then controlled I then attached the multiplanar frame by connecting from anterior to lateral and anterior medial creating to a frames and then I applied the heel protector on the back thus leaving the heel off the bed. At that point then I was able to then close reduce the ankle after I connected it by pulling on the pins distracting it pulling rotating and distracting putting the ankle back into place I felt comfortable with this I tightened all the multi plantar pins and the tightening all the nuts and bolts stable position at that point. Fluoroscopy was checked. After reduction have been performed the frame was applied then a percutaneously pin through the medial malleolus I also pinned across the medial malleolus into the tibia holding the fracture fragment and the last 1 was from posterior to anterior holding the fracture fragments together. I felt comfortable putting all these pieces back together therefore we will get an x-ray at this point afterwards to check for position the pins were then cut pin covers were applied the patient did have a spinal and popliteal and then I also performed a saphenous nerve block prior to performing the procedure everything was then dressed with Xeroform compression bandage she Toller procedure well without complications must remain nonweightbearing plan for return to the OR on Saturday for ORIF Surgical Findings: Fracture fragments of the lower tibia distal tibia with at the medial malleolus and subluxation Complications Complications: No
[2024-09-22] MEDS: Cefazolin 2 GM in Syringe IV (22:47)
[2024-09-23 00:45] VITALS: O2SAT 85
[2024-09-23 00:57] VITALS: BP 108/65; PULSE 68; RESP 15; TEMP 37; O2SAT 93
[2024-09-23 03:53] VITALS: BP 109/68; PULSE 74; RESP 15; TEMP 36.9; O2SAT 94
[2024-09-23] MEDS: oxyCODONE 5 MG Tablet 10 MG PO ×2 (04:04→17:09)
[2024-09-23] MEDS: Acetaminophen 500 MG Tablet 1000 MG PO ×3 (06:04→20:54)
[2024-09-23] MEDS: Cefazolin 2 GM in Syringe IV ×3 (06:04→20:54)
[2024-09-23] MEDS: 0.9% Saline Lock 10 ML Syringe IV ×2 (06:04→09:18)
[2024-09-23] MEDS: Ondansetron 4 MG/2 ML Vial IV (09:18)
[2024-09-23] MEDS: Enoxaparin 40 MG/0.4 ML Syringe SC (09:21)
[2024-09-23] MEDS: oxyCODONE HCl Cr 10 MG Tablet 20 MG PO ×2 (11:18→20:54)
--- NOTE | 2024-09-23 11:42 | CASEMGMT ---
Addendum entered by Latoya Muhammad 09/23/24 11:43: Pt is currently NWB. Original Note: Noted pt had OR last evening and no therapy ordered, discussed with charge nurse who will check on this. Plan to go back to OR on Saturday per note.
[2024-09-23 14:21] VITALS: BP 112/57; PULSE 88; RESP 16; TEMP 36.9; O2SAT 93
--- NOTE | 2024-09-23 15:50 | CASEMGMT ---
Social Work SW printed list from [facility] of senior care facilities in network w/pt's insurance, in pt's preferred geographic area and complete w/quality and resource use data. FERNANDA Ramirez
--- NOTE | 2024-09-23 17:06 | NURSING ---
called to room by BEHAVIORAL SCIENCE CHAIR, noted saturated dressing to distal wound under heel. reinforced w/ abd and dominick wrap. pt states pain throbbing, discussed pain meds. call light within reach.
--- NOTE | 2024-09-23 17:14 | NURSING ---
dr. campos updated on reinforcing dressing via backline message
[2024-09-23 20:34] VITALS: BP 102/62; PULSE 65; RESP 16; TEMP 36.9; O2SAT 94
[2024-09-24 02:02] VITALS: BP 106/63; PULSE 72; RESP 18; TEMP 36.6; O2SAT 94
[2024-09-24] MEDS: oxyCODONE 5 MG Tablet 10 MG PO (02:06)
[2024-09-24 05:54] VITALS: O2SAT 94
[2024-09-24] MEDS: Acetaminophen 500 MG Tablet 1000 MG PO ×3 (06:16→21:29)
[2024-09-24 09:54] VITALS: BP 103/59; PULSE 84; RESP 18; TEMP 36.7; O2SAT 96
[2024-09-24] MEDS: Enoxaparin 40 MG/0.4 ML Syringe SC (09:57)
[2024-09-24] MEDS: oxyCODONE HCl Cr 10 MG Tablet 20 MG PO ×2 (09:57→21:29)
[2024-09-24] MEDS: Senna Tablet 2 TABLET PO ×2 (11:23→21:29)
[2024-09-24 14:57] VITALS: BP 116/72; PULSE 76; RESP 16; TEMP 36.6; O2SAT 98
[2024-09-24 20:00] VITALS: BP 118/78; PULSE 79; RESP 16; TEMP 36.8; O2SAT 96
[2024-09-25] VITALS (16 sets, daily range): BP systolic 88–142; BP diastolic 60–90; PULSE 67–98; RESP 12–16; TEMP 36.6–37.2; O2SAT 78–100; BMI 28.4
[2024-09-25] MEDS: oxyCODONE 5 MG Tablet 10 MG PO ×2 (02:44→19:57)
--- NOTE | 2024-09-25 05:00 | EKG12_ITS ---
Test Reason : AM EKG Blood Pressure : */* mmHG Vent. Rate : 79 BPM Atrial Rate : 79 BPM P-R Int : 192 ms QRS Dur : 92 ms QT Int : 374 ms P-R-T Axes : 63 -19 14 degrees QTcB Int : 428 ms Sinus rhythm with occasional Premature ventricular complexes Otherwise normal ECG When compared with ECG of 10-Mar-2018 08:19, Premature ventricular complexes are now Present Confirmed by HANSEL JAMES, JESSICA ([id number]), acquisition editor ELIE PANDEY ([id number]) on 09/25/2024 9:57:28 AM Referred By: MAMADOU Confirmed By: JESSICA HAMM MD
[2024-09-25 05:58] LABS: Absolute Lymphocyte Count 1.08 X10^3/uL (0.83-4.51); Absolute Neutrophil Count 6.9 X10^3/uL (2.0-7.7); Basophil# 0.05 X10^3/uL; Basophil% 0.6 % (0-1); Eosinophil# 0.15 X10^3/uL; Eosinophils% 1.7 % (0-5); Hematocrit 44.5 % (40-54); Lymphocyte # 1.08 X10^3/ul (0.83-4.51); Lymphocyte % 11.9 % (19-41); Mean Corpuscular Hgb 33.3 pg (27.0-32.0); Mean Corpuscular Volume 92.7 fL (80-94); Mean Platelet Vol. 9.8 fl (6.2-12.0); Monocyte# 0.88 X10^3/uL; Monocyte% 9.7 % (0-10); NRBC Flagged by Analyzer 0 % (0-5); Neutrophil # 6.87 X10^3/uL (2.7-7.7); Neutrophil % 75.8 % (47-70); Platelet Count 210 K/mm3 (150-450); RBC Distribution Width CV 11.7 % (11.6-14.6); RBC Distribution Width SD 39.5 fl (35.1-43.9); White Blood Count 9.1 K/mm3 (4.4-11.0)
[2024-09-25 06:55] LABS: Anion Gap 5 (5-15); BUN 10 mg/dL (7-18); Calcium,Total 8.8 mg/dL (8.5-10.1); Chloride 107 mmol/L (98-107); Creatinine, Serum 0.91 mg/dL (0.70-1.30); EST Glomerular Filtration Rate 90 mL/min (>60); Est Glom Filt Rate - Afr Amer 108 mL/min (>60); Estimated Creatinine Clearance 92.66 ml/min; Glucose 109 mg/dL (74-106); Potassium 3.6 mmol/L (3.5-5.1); Sodium Level 138 mmol/L (136-145)
[2024-09-25] MEDS: oxyCODONE HCl Cr 10 MG Tablet 20 MG PO ×2 (09:27→21:18)
[2024-09-25] MEDS: Senna Tablet 2 TABLET PO ×2 (09:27→21:17)
--- NOTE | 2024-09-25 12:31 | CASEMGMT ---
Social Work- Pt declined therapy following surgery today. SNF list printed, but not provided at this time due to not having therapy. Pt reports he lives in a single story home with ; would like to see how therapy goes prior to discharge planning. SW remains available to follow. DENEEN Mcbride
--- NOTE | 2024-09-25 12:34 | CASEMGMT ---
NANCY CM into Pt room. Pt to have surgery later today. Discussed possible options for DC, Pt denies wanting to go SNF or receive C services. Will continue to follow for for therapy recommendations and safe DC planning.
--- NOTE | 2024-09-25 13:05 | PCM.PN.SRG ---
Subjective Subjective Patient is now postop to day 2 status post ORIF with external fixation frame and close reduction of the ankle he has been having pain but he seems to be better he is just having more spasms that he states is a problem may or may not need to evaluate the spasms as of now are scheduling for surgery on Saturday. He was seen yesterday Objective Data Objective Data Left lower leg is healing at this point stable position stable pins are intact plan for removal and ORIF with plating. Vital Signs: Vital Signs Temp Pulse Resp BP Pulse Ox O2 Del Method O2 Flow Rate 98.1 F 68 16 117/73 94 Room Air 2 09/25/24 09:23 09/25/24 09:23 09/25/24 09:23 09/25/24 09:23 09/25/24 09:23 09/25/24 09:25 09/25/24 08:04 Oxygen Flow Rate (L/min) 2 Oxygen Delivery Method Room Air Weight: 90.2 kg Body Mass Index (BMI) 28.4 Intake & Output: Intake and Output for Last 24 Hours 09/23/24 09/24/24 09/25/24 23:59 23:59 23:59 Intake Total 360 / 610 500 / 500 Output Total 1075 / 1625 850 / 1350 500 / 500 Balance -715 / -1015 -350 / -850 -500 / -500 Lab / Micro Data 09/25/24 05:30 09/25/24 05:30 Labs: Laboratory Results - last 24 hr 09/25/24 05:30: WBC 9.1, RBC 4.80, Hgb 16.0, Hct 44.5, MCV 92.7, MCH 33.3 H, MCHC 36.0, RDW Std Deviation 39.5, RDW Coeff of Arturo 11.7, Plt Count 210, MPV 9.8, Immature Gran % (Auto) 0.300, Neut % (Auto) 75.8 H, Lymph % (Auto) 11.9 L, [place] % (Auto) 9.7, Eos % (Auto) 1.7, Baso % (Auto) 0.6, Absolute Neuts (auto) 6.9, Absolute Lymphs (auto) 1.08, Nucleated RBC % 0, Sodium 138, Potassium 3.6, Chloride 107, Carbon Dioxide 27.0, Anion Gap 5, BUN 10, Creatinine 0.91, Estim Creat Clear Calc 92.66, Est GFR (MDRD) Af Amer 108, Est GFR (MDRD) Non-Af 90, BUN/Creatinine Ratio 11.0, Glucose 109 H, Calcium 8.8 Physical Exam Narrative Mild strikethrough laterally but otherwise stable. Pins intact dressings intact no signs of infection. Extremity normal to inspection, full ROM, normal capillary refill, no joint enlargement, no clubbing, cyanosis or edema, no calf tenderness and no pedal edema Assessment & Plan Assessment/Plan (1) Leg pain, left: (2) Fall: (3) Fracture of tibia, left, closed: PLAN: plan or orif of the left lower leg and ankle
--- NOTE | 2024-09-25 13:07 | PCM.PROGNOTE ---
Subjective Subjective Date of this visit is 09/23/2024 patient is postop day #1 status post ORIF I spoke with the patient on the phone I did note that the patient was in pain he was having more spasms otherwise he was doing well postoperative surgical repair. Objective Data Objective Data No new issues she is doing well laying in bed. Vital Signs: Vital Signs Temp Pulse Resp BP Pulse Ox O2 Del Method O2 Flow Rate 98.1 F 68 16 117/73 94 Room Air 2 09/25/24 09:23 09/25/24 09:23 09/25/24 09:23 09/25/24 09:23 09/25/24 09:23 09/25/24 09:25 09/25/24 08:04 Oxygen Flow Rate (L/min) 2 Oxygen Delivery Method Room Air Weight: 90.2 kg Body Mass Index (BMI) 28.4 Intake & Output: Intake and Output for Last 24 Hours 09/23/24 09/24/24 09/25/24 23:59 23:59 23:59 Intake Total 360 / 610 500 / 500 Output Total 1075 / 1625 850 / 1350 500 / 500 Balance -715 / -1015 -350 / -850 -500 / -500 Lab / Micro Data 09/25/24 05:30 09/25/24 05:30 Labs: Laboratory Results - last 24 hr 09/25/24 05:30: WBC 9.1, RBC 4.80, Hgb 16.0, Hct 44.5, MCV 92.7, MCH 33.3 H, MCHC 36.0, RDW Std Deviation 39.5, RDW Coeff of Arturo 11.7, Plt Count 210, MPV 9.8, Immature Gran % (Auto) 0.300, Neut % (Auto) 75.8 H, Lymph % (Auto) 11.9 L, Beaver % (Auto) 9.7, Eos % (Auto) 1.7, Baso % (Auto) 0.6, Absolute Neuts (auto) 6.9, Absolute Lymphs (auto) 1.08, Nucleated RBC % 0, Sodium 138, Potassium 3.6, Chloride 107, Carbon Dioxide 27.0, Anion Gap 5, BUN 10, Creatinine 0.91, Estim Creat Clear Calc 92.66, Est GFR (MDRD) Af Amer 108, Est GFR (MDRD) Non-Af 90, BUN/Creatinine Ratio 11.0, Glucose 109 H, Calcium 8.8 Assessment & Plan Assessment/Plan (1) Leg pain, left: (2) Fall: (3) Fracture of tibia, left, closed: PLAN: Postop day #1 plan for ORIF on Saturday. Dates of Coverage Times for Dates Of Coverage; All dates of coverage are for physician supervision/medical office representative for during the times of 08:00 AM through 4:30 PM. Effective Jun 07, 2013 our hours will be changing to 8:00 to 4:30 on Saturday, Saturday and Saturday.
--- NOTE | 2024-09-25 13:08 | PRE.ANES_ITS ---
ASA Classification* ASA Classification ASA Classification: 2 Assessment & Plan Anesthesia* Anesthesia Assessment Anesthesia Assessment: Discussed sedation and/or anesthesia options, risks, benefits, and alternatives with patient/parents/legal guardian/POA. Questions invited. The patient/parents/legal guardian/POA seems to understand and agrees to proceed with anesthesia plan. Reviewed the physical assessment, medical history, allergy history and patient home medications list prior to surgery/procedure/anesthetic and documented any changes. Performed airway and anesthesia risk assessments. Anesthesia Type Anesthesia Type: Spinal (patient req Spinal if possible, lovenox greater than 24 hours ago) and Block (popliteal block requested by surgeon) Anesthesia Focused Assessment* Temperature: 98.1 F Pulse Rate: 68 Blood Pressure: 117/73 Respiratory Rate: 16 Pulse Ox: 94 Oxygen Flow Rate (L/min): 2 Airway Assessment Mouth opens: >3 cm Mallampati Score: II Comment: Last Lovenox over 24 hours ago Focused Labs Anesthesia Preop lab: CBC WBC 9.1 K/mm3 (4.4-11.0) 09/25/24 05:30 RBC 4.80 M/mm3 (4.6-6.2) 09/25/24 05:30 Hgb 16.0 g/dL (13.0-16.5) 09/25/24 05:30 Hct 44.5 % (40-54) 09/25/24 05:30 Plt Count 210 K/mm3 (150-450) 09/25/24 05:30 CHEMISTRY Potassium 3.6 mmol/L (3.5-5.1) 09/25/24 05:30 Sodium 138 mmol/L (136-145) 09/25/24 05:30 BUN 10 mg/dL (7-18) 09/25/24 05:30 Creatinine 0.91 mg/dL (0.70-1.30) 09/25/24 05:30 Glucose 109 mg/dL (74-106) H 09/25/24 05:30 COAG PT 14.8 SECONDS (11.7-14.9) 09/22/24 01:00 Pre-Assessment Diagnosis/Proposed Procedure Planned Operative Procedure(s): Left ankle removal ext fixator, ORIF Anesthesia History 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 When Was Last Pacemaker Check QUESTION #4 FULL TEXT: You/Your Family Experience fever (hyperthermia) with Anesthesia Last Oral Intake Last Oral intake: Last Oral Intake NPO since 00:00 09/25/24 04:47 Meds taken in AM with sips of Yes 09/22/24 16:16 water? Meds patient instructed to Oxy/ Tylenol 09/22/24 16:16 take am of surgery PONV PONV - casting machine adjuster: PONV - casting machine adjuster Female HX of Motion Sickness HX of N/V After Surgery Non-Smoker Duration of Surgery greater than 60 minutes Number of Risk Factors PONV Score Height & Weight Height & Weight: Anesthesia: Height & Weight Height 5 ft 10.08 in 09/22/24 16:16 Weight: 90.2 kg 09/22/24 16:16 Body Mass Index (BMI) 28.4 09/25/24 04:47 Respiratory Assessment Respiratory Assessment - casting machine adjuster: Respiratory Tract Infection Hx - casting machine adjuster Hx Respiratory Tract Infection No 09/24/24 21:32 STOP Sleep Apnea STOP Sleep Apnea - casting machine adjuster: STOP Sleep Apnea - casting machine adjuster Hx Hypertension No 09/24/24 13:52 Hx Sleep Apnea No 09/22/24 20:20 CPAP BIPAP Do you snore loudly (louder No 09/22/24 03:04 than talking or can be heard Do you often feel tired/ No 09/22/24 03:04 fatigued/ sleepy during daytime? Has anyone observed you stop No 09/22/24 03:04 breathing during sleep? STOP Results Negative 09/22/24 20:08 QUESTION #5 FULL TEXT : Do you snore loudly (louder than talking or can be heard through closed doors)? 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 Specify any problems Hx of Preganancy in last 3 N/A 09/22/24 03:04 Months Nurse Filling Out Transfusion CSIGNORIN 09/22/24 03:04 & Questions: Date: 09/22/24 09/22/24 03:04 Time: 03:06 09/22/24 03:04 Patient unable to answer at this time (ie. confused, unrespo /Reproduction History /Reproductive History - casting machine adjuster: /Reproductive Hx- casting machine adjuster Hx Now na 09/24/24 21:32 Gestational Age (in weeks): EDC: Hx Hx Para Hx Section SAB No 09/24/24 21:32 Active Medications Active Medications: Current Medications Generic Name Dose Route Start Last Admin Trade Name Freq PRN Reason Stop Dose Admin Acetaminophen 1,000 mg 09/22/24 06:00 09/25/24 05:52 Acetaminophen 500 Mg Tablet PO Not Given Q8 EMANUEL Enoxaparin Sodium 40 mg 09/22/24 10:00 09/25/24 09:27 Enoxaparin 40 Mg/0.4 Ml Syringe SC Not Given DAILY EMANUEL Hydromorphone HCl 0.5 - 1 mg 09/22/24 01:58 09/22/24 05:47 Hydromorphone 1 Mg/Ml Syringe IV 1 mg Q3H PRN PRN Administration Pain Score 6-10 Sodium Chloride 100 mls @ 15 mls/hr 09/22/24 02:54 IV .Q6H40M PRN Saline Flush Sodium Chloride 100 mls @ 15 mls/hr 09/22/24 02:54 IV .Q6H40M PRN Additional IVPB Infusion Sodium Chloride 1,000 mls @ 15 mls/hr 09/25/24 13:10 IV 09/28/24 07:49 .Q48H EMANUEL Protocol Melatonin 3 mg 09/22/24 01:58 Melatonin 3 Mg Tablet PO QHS PRN PRN INSOMNIA Ondansetron HCl 4 mg 09/22/24 09:24 09/23/24 09:18 Ondansetron 4 Mg/2 Ml Vial IV 4 mg Q6H PRN PRN Administration NAUSEA Oxycodone HCl 10 mg 09/22/24 01:58 09/25/24 02:44 Oxycodone 5 Mg Tablet PO 10 mg Q4H PRN PRN Administration Pain Score 4-10 Oxycodone HCl 20 mg 09/22/24 02:15 09/25/24 09:27 Oxycodone Hcl Cr 10 Mg Tablet PO 20 mg BID EMANUEL Administration Senna 2 tablet 09/24/24 10:50 09/25/24 09:27 Senna Tablet PO 2 tablet BID EMANUEL Administration Sodium Chloride 10 - 40 ml 09/22/24 02:54 09/23/24 09:18 0.9% Saline Lock 10 Ml Syringe IV 10 ml UD PRN Administration SALINE FLUSH PFSH Home Medications ?Medication ?Instructions ?Recorded ?Last Taken ?Type NK 09/22/24 Unknown History Allergy/AdvReac Type Severity Reaction Status Date / Time No Known Allergies Allergy Verified 09/21/24 21:12 Family History no significant family his Social History Smoking Status: Never smoker Review of Systems (Anesthesia) ROS Narrative System reviewed and no additional complaints, except as documented.
[2024-09-25] MEDS: Cefazolin 2 GM in Syringe IV (13:53)
--- NOTE | 2024-09-25 14:08 | RAD_ITS ---
EXAM: XR LEFT ANKLE COMPLETE, 3 OR MORE VIEWS CLINICAL INDICATION: ORIF LT ANKLE, EXTERNAL FIXATOR REMOVAL TECHNIQUE: Frontal, lateral and oblique views of the left ankle. COMPARISON: No relevant prior studies available. FINDINGS: BONES/JOINTS: Intraoperative images were obtained of the left ankle. These show placement of orthopedic plate and screws across a distal tibial fracture. Preservation of the joint space. No sclerotic or destructive changes observed. SOFT TISSUES: Unremarkable. No soft tissue swelling or gas. No radiopaque foreign body. RAD/Ankle min 3 Views IMPRESSION: ORIF of a distal tibial fracture. Electronically Signed: Cedric Phan MD at 20:54 EST ,
[2024-09-25] MEDS: Thrombin 5,000 IU Kit (PSA) 5,000 IU Vial 5000 IU TOPICAL (14:37)
[2024-09-25] MEDS: Heparin 10,000 UNITS/10 ML Vial 10000 UNITS (14:37)
[2024-09-25] MEDS: Calcium Chloride 1 GM/10 ML Syringe (14:37)
[2024-09-25] MEDS: Bupivacaine Mpf 0.5% 30 ML VIAL (16:03)
--- NOTE | 2024-09-25 16:19 | PCM.POST.ANE ---
Anesthesia: Postop Eval I Current Vital Signs Temperature: 98.3 F Pulse Rate: 81 Blood Pressure: 106/88 Respiratory Rate: 16 Pulse Ox: 94 Oxygen Delivery Method: Venturi Mask Oxygen Flow Rate (L/min): 6 Assessment Airway patent: Yes Spontaneous unlabored respirations: Yes Mental status: Awake and Calm nausea: No Vomiting: No Anesthesia Complication: No Fluid Hydration Crystalloid volume administer (ml): 900 Total IV fluid infused: 900 Progress Note Anesthesia document: Postop Eval 1 completed: Yes
--- NOTE | 2024-09-25 16:20 | POSTOPAN2_ITS ---
Anesthesia Postop Eval I Sum Postop Eval Completion status Anesthesia document: Postop Eval 1 completed: Yes Anesthesia Postop Eval I Summary Anesthesia Postop Eval I Summary: Anesthesia Postop Eval I: Assessment Summary Airway patent Yes 09/25/24 16:20 TRACK INSPECTING [email or web address].[email or web address] Spontaneous unlabored Yes 09/25/24 16:20 TRACK INSPECTING SUPERVISOR.MDOT respirations Mental status Awake,Calm 09/25/24 16:20 TRACK INSPECTING SUPERVISOR.MDOT nausea No 09/25/24 16:20 TRACK INSPECTING SUPERVISOR.MDOT Vomiting No 09/25/24 16:20 TRACK INSPECTING [email or web address].MDOT Anesthesia Postop Eval I: Fluid Summary Crystalloid volume administer 900 09/25/24 16:20 TRACK INSPECTING SUPERVISOR.MDOT (ml) Colloids volume administered ( ml) Blood Product volume administered (ml) Total IV fluid infused 900 09/25/24 16:20 TRACK INSPECTING [email or web address].MDOT Anesthesia Postop Eval I: Summary Notes Anesthesia Complication No 09/25/24 16:20 TRACK INSPECTING [email or web address].[email or web address] Anesthesia Complication Comment: Post-operative progress note Anesthesia: Postop Eval II Evaluation Mental status: Awake and Calm Pain Level: 0 nausea: No Vomiting: No Complications Anesthesia Complication: No
--- NOTE | 2024-09-25 16:20 | PCM.POSTANE2 ---
Anesthesia Postop Eval I Sum Postop Eval Completion status Anesthesia document: Postop Eval 1 completed: Yes Anesthesia Postop Eval I Summary Anesthesia Postop Eval I Summary: Anesthesia Postop Eval I: Assessment Summary Airway patent Yes 09/25/24 16:20 PAPER [email or web address] Spontaneous unlabored Yes 09/25/24 16:20 PAPER [email or web address].MDOT respirations Mental status Awake,Calm 09/25/24 16:20 PAPER [email or web address].MDOT nausea No 09/25/24 16:20 PAPER [email or web address].MDOT Vomiting No 09/25/24 16:20 PAPER [email or web address].MDOT Anesthesia Postop Eval I: Fluid Summary Crystalloid volume administer 900 09/25/24 16:20 PAPER [email or web address].MDOT (ml) Colloids volume administered ( ml) Blood Product volume administered (ml) Total IV fluid infused 900 09/25/24 16:20 PAPER [email or web address] Anesthesia Postop Eval I: Summary Notes Anesthesia Complication No 09/25/24 16:20 PAPER [email or web address].MDOT Anesthesia Complication Comment: Post-operative progress note Anesthesia: Postop Eval II Evaluation Mental status: Awake and Calm Pain Level: 0 nausea: No Vomiting: No Complications Anesthesia Complication: No
--- NOTE | 2024-09-25 16:34 | OP.PCM_ITS ---
Problems Associated Problem List Diagnoses (1) Fracture of tibia, left, closed: (2) Leg pain, left: (3) Fracture of distal end of tibia: Operative Report (Standard) Operative Information Date of Procedure: 09/25/24 Pre-Operative Diagnosis: Comminuted distal articular surface tibia fracture left lower Nonhealing incision from previous external fixation frame leg Painful external fixation device and external fixator. Post-Operative Diagnosis: Same as above Surgery/Procedure Performed: 1. Open reduction internal fixation of comminuted distal tibial fracture intra-articular left lower leg 2. Removal of external fixation device to the left lower leg 3. Delayed primary closure left lower leg incisions previously made from mother and surgery. aquatics manager: Yes Retail Service Specialist: Dick Dominguez Tasks completed by acute care certified nursing assistant: Closing and Retracting Additional marketing support assistant?: No Type of Anesthesia: MAC/Supplemental/Local and Spinal RN Documented Start/Stop Times: Operation Date: 09/25/24 14:30 Case Time Into Pre-Op 09/25/24 12:51 Out of Pre-Op 09/25/24 13:34 Anesthesia Start 09/25/24 13:40 Into Room 09/25/24 13:40 Procedure Start 09/25/24 14:10 Procedure End 09/25/24 16:10 Anesthesia End 09/25/24 16:15 Out of Room 09/25/24 16:15 Into Recovery 09/25/24 16:17 Procedure Start Time: 14:10 Procedure Stop Time: 16:10 Select all DRAINS/GRAFTS/IMPLANTS that apply: None and Implanted device Implanted device details: deepthi screws andtibial plate Estimated Blood Loss: 30 cc Specimen collected: No Description of surgery: This patient was seen as a hospital admission as well as I plan to primary doctor of his case as he fell from a fall this occurred on Saturday about 1 week ago. He was then admitted on Saturday we then planned a surgery on Saturday which was closed reduction and fixation of his ankle by closing down the lower leg pinning it in place at that point he tolerated this procedure well it was unnecessary to open reduce and closed everything with plate and screws as this patient could not tolerate the external fixation frame. Therefore the patient then will have open reduction internal fixation him and his family understand all the risks complications and benefits consisting of nonunion, arthritis, delayed union, pain infection implant failure. He does understand he must remain nonweightbearing The patient was seen in the preoperative holding area chart was reviewed and consent was signed. Patient was then taken back to the operating room placed the operative normal supine position a bump was placed underneath the contralateral limb to allow his leg to roll inward we placed a tourniquet around his left thigh it we then scrubbed prepped and draped the lower extremity aseptic technique. Patient had a spinal block and a MAC sedation. At that point then I also added a saphenous block with 10 cc of quarter percent Marcaine plain. At that point then tensions undirected to the medial aspect and the dorsal aspect of the lower leg at that point we took off the frame and asked on nonsterile environment at that point remove the 2 pins in the tibia 1 in the calcaneus remove them completely as well as the external fixator. We checked on fluoroscopy for positioning which was good at that point. Next then we then inserted a trocar into the calcaneus before going up and the tourniquet and then removed 60 cc of bone marrow aspirate. At that point then the delayed primary closure was then performed I did use a curette scooped out the 2 incisions on the distal tibia as well as in the calcaneus and I closed those incisions in a delayed primary fashion using 3-0 Prolene in a horizontal vertical and simple erupted suture technique. In that point then it was checked on fluoroscopy for the fracture I then made a 9 cm linear longitudinal incision along the anterior medial aspect of the tibia down into including subcutaneous tissue down to the periosteum there is a large amount of hemorrhagic periosteum in which we freed this up completely off the bone down to the. Down to the tibia. The fractures were then evident I then inserted 2 screws from distal medial to proximal lateral direction in an oblique fashion I checked that there were parallel this is from anterior tibia to posterior tibia grabbing the fracture fragment. At that point then I measured them to be 50 I drilled countersunk and drilled the screws into close and grab posterior tibial plafond sections. Next I applied the medial plate along the anteromedial aspect of the tibia after closing reducing these with sharp to sharp [id number] closure and retinaculum clamps. At that point once it was then reduced we then applied the tibial plate multiple locking nonlocking screws were then inserted varying lengths and depths excellent compression across the site they were all checked on fluoroscopy I felt very confident of the fracture had been reduced and was very stable at this point. It was then flushed the periosteum was then closed with 2-0 Vicryl 3-0 Vicryl lola posterior splint was applied with a multilayer compression bandage he must remain nonweightbearing he tolerated procedure well without complications he will be sent back to his room for postoperative management Surgical Findings: Comminuted fracture left lower leg most immediately but also intra-articular. Complications Complications: No Admit VTE Documentation VTE Present on Admission: Yes VTE Mechan Device Prophylaxis: SCD's
--- NOTE | 2024-09-25 16:41 | RAD_ITS ---
EXAM: XR LEFT TIBIA AND FIBULA, 2 VIEWS CLINICAL INDICATION: post op procedure TECHNIQUE: Frontal and lateral views of the left tibia and fibula. COMPARISON: No relevant prior studies available. FINDINGS: BONES/JOINTS: There is orthopedic plate and screws across a distal tibial fracture. Fracture fragments are in anatomic alignment. Preservation of the joint space. No sclerotic or destructive changes observed. SOFT TISSUES: Unremarkable. No soft tissue swelling or gas. No radiopaque foreign body. RAD/Tibia & Fibula 2 Views IMPRESSION: ORIF distal tibial fracture. Electronically Signed: Cedric Phan MD at 21:02 EST ,
--- NOTE | 2024-09-25 17:05 | RAD_ITS ---
EXAM: XR LEFT ANKLE COMPLETE, 3 OR MORE VIEWS CLINICAL INDICATION: post op pain TECHNIQUE: Frontal, lateral and oblique views of the left ankle. COMPARISON: 09/22/2024 FINDINGS: BONES/JOINTS: There is an orthopedic plate and screws from repair of a distal tibial fracture. Fracture fragments are in anatomic alignment. Preservation of the joint space. No sclerotic or destructive changes observed. SOFT TISSUES: Unremarkable. No soft tissue swelling or gas. No radiopaque foreign body. RAD/Ankle min 3 Views IMPRESSION: ORIF of the distal tibial fracture. Alignment is anatomic. Electronically Signed: Cedric Phan MD at 18:31 EST ,
[2024-09-25] MEDS: Ondansetron 4 MG/2 ML Vial IV (18:03)
[2024-09-25] MEDS: HYDROmorphone 1 MG/ML Syringe IV (18:04)
[2024-09-25] MEDS: 0.9% Saline Lock 10 ML Syringe IV (18:04)
[2024-09-25] MEDS: Ascorbic Acid 500 MG Tablet PO (18:04)
[2024-09-25] MEDS: Acetaminophen 500 MG Tablet 1000 MG PO (21:17)
[2024-09-26] MEDS: oxyCODONE 5 MG Tablet 10 MG PO ×2 (00:58→05:17)
[2024-09-26 01:51] VITALS: BP 117/70; PULSE 95; RESP 16; TEMP 36.6; O2SAT 94
[2024-09-26] MEDS: Acetaminophen 500 MG Tablet 1000 MG PO ×3 (05:17→21:04)
[2024-09-26 05:28] VITALS: BP 110/67; PULSE 92; RESP 16; TEMP 37.2; O2SAT 94
--- NOTE | 2024-09-26 09:01 | PCM.PN.SRG ---
Subjective Subjective Patient is now postop day #1 status post removal of external fixation frame, delayed closure, open reduction internal fixation with plates and screws left lower leg. The patient seems to be resting well he does have pain along the incision site but nowhere else. Splint is intact with stable for now the patient has not had a bowel movement therefore waiting for this. Objective Data Objective Data Left lower leg looks clean dry and intact stable there is no strikethrough it is a good splint right now he is able to wiggle the toes. Pain is localized medially where the incision was. His denies calf Pain or shortness of breath. Vital Signs: Vital Signs Temp Pulse Resp BP Pulse Ox O2 Del Method O2 Flow Rate 98.9 F 92 16 110/67 94 Nasal Cannula 2 09/26/24 05:28 09/26/24 05:28 09/26/24 05:28 09/26/24 05:28 09/26/24 05:28 09/26/24 05:28 09/26/24 05:28 Oxygen Flow Rate (L/min) 2 Oxygen Delivery Method Nasal Cannula Weight: 90.2 kg Body Mass Index (BMI) 28.4 Intake & Output: Intake and Output for Last 24 Hours 09/24/24 09/25/24 09/26/24 23:59 23:59 23:59 Intake Total 500 / 500 Output Total 850 / 1350 500 / 500 650 / 650 Balance -350 / -850 -480 / -480 -650 / -650 Lab / Micro Data Attestation: I reviewed the patient's lab results. 09/25/24 05:30 09/25/24 05:30 Radiography Diagnostic Testing: Radiology Impression Ankle X-Ray 09/25/24 14:08 IMPRESSION: ORIF of a distal tibial fracture. Electronically Signed: Cedric Phan MD at 20:54 EST , Tibia/Fibula X-Ray 09/25/24 16:41 IMPRESSION: ORIF distal tibial fracture. Electronically Signed: Cedric Phan MD at 21:02 EST , Ankle X-Ray 09/25/24 17:05 IMPRESSION: ORIF of the distal tibial fracture. Alignment is anatomic. Electronically Signed: Cedric Phan MD at 18:31 EST , Physical Exam Narrative Patient is alert active oriented no acute distress doing well having minimal complaints except for the lower leg, he cannot get a bowel movement he has not had 1 since he has been here therefore we need to work on this before he can be discharged. Assessment & Plan Assessment/Plan (1) Fracture of distal end of tibia: PLAN: Postop doing well no complaints except for just slight pain will DC or at least bring down his pain medication note to allow for bowel movement (2) Leg pain, left: (3) Fall: (4) Fracture of tibia, left, closed: (5) Constipation due to pain medication: PLAN: Plan Hopefully plan for discharge tomorrow or later today.
[2024-09-26 09:18] VITALS: BP 110/65; PULSE 93; RESP 14; TEMP 36.7; O2SAT 94
[2024-09-26] MEDS: Ascorbic Acid 500 MG Tablet PO ×2 (09:19→16:28)
[2024-09-26] MEDS: Senna Tablet 2 TABLET PO ×2 (09:19→21:04)
[2024-09-26] MEDS: Enoxaparin 40 MG/0.4 ML Syringe SC (09:19)
[2024-09-26] MEDS: oxyCODONE 5 MG Tablet PO ×3 (09:21→17:42)
[2024-09-26 11:34] VITALS: O2SAT 90
--- NOTE | 2024-09-26 13:57 | CASEMGMT ---
Noted pt refused therapy this date.
[2024-09-26 15:00] VITALS: BP 107/62; PULSE 62; RESP 15; TEMP 37.2; O2SAT 94
--- NOTE | 2024-09-26 16:03 | NURSING ---
PAIN NOT CONTROLLED W/EMANUEL TYLENOL AND PRN OXYCODONE 5 MG. TEXT SENT TO DR CEDILLO AT THIS TIME
[2024-09-26] MEDS: 0.9% Saline Lock 10 ML Syringe IV (16:25)
[2024-09-26] MEDS: Ondansetron 4 MG/2 ML Vial IV (16:28)
[2024-09-26] MEDS: HYDROmorphone 0.5 MG/0.5 ML SYRINGE IV ×3 (16:29→20:54)
[2024-09-26 21:12] VITALS: BP 132/77; PULSE 98; RESP 16; TEMP 37.4; O2SAT 93
[2024-09-27] MEDS: oxyCODONE 5 MG Tablet PO ×5 (01:18→22:57)
[2024-09-27 03:27] VITALS: BP 117/86; PULSE 94; RESP 16; TEMP 37; O2SAT 93
[2024-09-27] MEDS: 0.9% Saline Lock 10 ML Syringe IV ×3 (03:28→12:44)
[2024-09-27] MEDS: HYDROmorphone 0.5 MG/0.5 ML SYRINGE IV (03:29)
[2024-09-27] MEDS: Acetaminophen 500 MG Tablet 1000 MG PO ×3 (06:58→22:02)
[2024-09-27 08:00] VITALS: BP 107/66; PULSE 68; RESP 12; TEMP 36.8; O2SAT 94
[2024-09-27] MEDS: Senna Tablet 2 TABLET PO ×2 (09:40→22:02)
[2024-09-27] MEDS: Enoxaparin 40 MG/0.4 ML Syringe SC (09:40)
[2024-09-27] MEDS: Ascorbic Acid 500 MG Tablet PO ×2 (09:40→16:08)
[2024-09-27] MEDS: HYDROmorphone 1 MG/ML Syringe IV (12:38)
[2024-09-27] MEDS: Ondansetron 4 MG/2 ML Vial IV (12:44)
[2024-09-27 14:00] VITALS: BP 121/69; PULSE 86; RESP 14; TEMP 36.8; O2SAT 94
[2024-09-27 15:35] VITALS: O2SAT 94
[2024-09-27 20:00] VITALS: BP 111/72; PULSE 90; RESP 16; TEMP 36.8; O2SAT 93
--- NOTE | 2024-09-27 20:47 | PCM.PN.SRG ---
Subjective Subjective post op day number 2 from ORIF left ankle repair and tibia repair, patient was seen yesterday and pain seemed controlled then later in the pM he was out of control. not sure if the block wore off but time to wean from meds and discharge home Objective Data Objective Data stable pov. denies n/v/c/f and no temp or bp issues, no calf pain or sob Vital Signs: Vital Signs Temp Pulse Resp BP Pulse Ox O2 Del Method O2 Flow Rate 98.2 F 86 14 121/69 H 94 Room Air 2 09/27/24 14:00 09/27/24 14:00 09/27/24 14:00 09/27/24 14:00 09/27/24 15:35 09/27/24 15:35 09/26/24 05:28 Oxygen Flow Rate (L/min) 2 Oxygen Delivery Method Room Air Weight: 90.2 kg Body Mass Index (BMI) 28.4 Intake & Output: Intake and Output for Last 24 Hours 09/25/24 09/26/24 09/27/24 23:59 23:59 23:59 Intake Total Output Total 500 / 500 1750 / 2150 2175 / 2175 Balance -480 / -480 -1750 / -2150 -2175 / -2175 Lab / Micro Data 09/25/24 05:30 09/25/24 05:30 Physical Exam Narrative vss, afebrile. left ankle stable and healing well. doing well and will continue to recommend tx and f/u then must work wtih therapy and then discharge home Assessment & Plan Assessment/Plan (1) Fracture of distal end of tibia: (2) Constipation due to pain medication: PLAN: Plan discharge tomorrow and get therapy to work with him
[2024-09-28 02:30] VITALS: BP 119/68; PULSE 84; RESP 16; TEMP 37.1; O2SAT 93
[2024-09-28] MEDS: oxyCODONE 5 MG Tablet PO ×3 (05:12→17:16)
[2024-09-28] MEDS: Acetaminophen 500 MG Tablet 1000 MG PO ×2 (05:12→14:19)
[2024-09-28 07:52] VITALS: BP 108/53; PULSE 65; PULSE 70; RESP 18; TEMP 36.6; O2SAT 92; O2SAT 95
[2024-09-28] MEDS: Enoxaparin 40 MG/0.4 ML Syringe SC (08:12)
[2024-09-28] MEDS: Ascorbic Acid 500 MG Tablet PO ×2 (08:13→16:20)
[2024-09-28] MEDS: Senna Tablet 2 TABLET PO (08:13)
--- NOTE | 2024-09-28 10:08 | CASEMGMT ---
Addendum entered by Latoya Muhammad 09/28/24 16:17: Made charge nurse and administrative secretary aware of green sheet for FWW as well as OP therapy rx. If OP therapy rx does not come back signed ok for pt to dc as it is noted on fax sheet for signature if Dr. Veloz wants therapy post dc. If it is signed, it can be given to pt and he is aware of where he can go for therapy. Addendum entered by Latoya Muhammad 09/28/24 16:13: Charge nurse reports Dr. Veloz asked if pt is being dc'd today. NANCY ALMEIDA awaiting signature of rx. Charge nurse called his office and states he is in the [place] office. Received fax number and faxed rx to this number. Pt ready for dc once walker received. Addendum entered by Latoya Muhammad 09/28/24 10:24: Noted no therapy recommended. TC to therapy, left vm to see if the AMPHIBIOUS OPERATIONS OFFICER would be seeing pt today. Original Note: TC to Dr. Veloz's office, received fax number and made administrative secretary aware that a FWW rx will be faxed for signature. Also asked if pt will need therapy post hospital stay or wait until follow up appt. Attached rx if physician wanted it post dc. Will await returned rx. NANCY ALMEIDA into pt room, pt lying in bed. Pt states he still has not had a BM. He states he wants to dc home and has his and usually his niece and nephew at the home to assist. Made aware that NANCY ALMEIDA is awaiting return of FWW rx and to see if he will need to do therapy post dc right away. Discussed possible facilities where he could do this. Pt denies any further questions at this time.
[2024-09-28 14:13] VITALS: BP 134/70; PULSE 90; RESP 20; TEMP 37.2; O2SAT 96
--- NOTE | 2024-09-28 18:24 | NURSING ---
Pt was given Dr Veloz's office number to make a followup appt, instructed to make it tomorrow, Dr Duff ordered to be on a normal diet, no weight bear, do not change the dressing and don't get it wet. Pt has told the nurse 3 times that is on her way, and she will stop at [facility] to chart picker pain meds before she come for him. Pt told nurse this am that has some dementia. Nurse asked if he needs to contact someone else to pick him up but he denied the need for that.
[2024-09-28 19:28] VITALS: BP 131/98; PULSE 94; RESP 17; TEMP 36.6; O2SAT 97
--- NOTE | 2024-10-05 09:48 | CASEMGMT ---
TC from [employer] requesting F2F notes for FWW and demo sheet. Faxed at this time. Made aware on cover sheet that this physician is not present at [facility] often and if further info is needed to reach out to his office.
--- NOTE | 2024-11-13 09:07 | PCM.DC.SUM ---
Providers Date of Admission: 09/22/24 Date of Discharge: 09/28/25 Primary Care Physician: Dr. Bryan Dykes DO Reason For Visit: LOWER LEG ANKLE RIGHT CLOSED FRACTURE Diagnosis Discharge Diagnosis (1) Fracture of distal end of tibia: Status: Inactive Code(s): S82.309A - Unspecified fracture of lower end of unspecified tibia, initial encounter for closed fracture (2) Constipation due to pain medication: Status: Resolved Code(s): K59.03 - Drug induced constipation (3) Synovitis of left ankle: Status: Acute Code(s): M65.972 - Unspecified synovitis and tenosynovitis, left ankle and foot (4) Pilon fracture of left tibia: Status: Acute Code(s): S82.872A - Displaced pilon fracture of left tibia, initial encounter for closed fracture Plan discharge tomorrow and get therapy to work with him Medications at Discharge Home Medications thioridazine 25 mg tablet 25 mg PO BID PRN PRN nimishacoughs 10/29/24 Hospital Course Summary of Care Provided Minutes Spent on Discharge: 45 Hospital Course: patient admitted for subluation and ankle fx of the right lower leg after a fall and disruption of the ankle wih pain and swellig. patient had fallen and disclated hios ankle and he fell on his ankle that created a dislocation and fracture of the distal tibia of the left lower leg he then underwent surgery of the left leg and orif of the tibia and then a few days later to let the skin flap and skin area calm down to treat the ankle fx. He then went back to the OR for ORIf of the tibia with plate fixation and had a comminuted fx of the lower leg and distal tibia as seen on CT scan. I then performed ORif of the left ankle. Patient tolerated procedure well and then was sent out and to f/u in one month or so. He will need ankle scope soon after surgery Physical Exam Narrative ankle fx and subluxatiojn post reduction stable and pain contriolled Const alert and oriented x3 Weight / BMI Weight Weight: 90.2 kg Body Mass Index (BMI) 28.4 ABG / Lab / Microbiology Data 09/25/24 05:30 09/25/24 05:30 D/C Instructions Discharge Diet: 2000 Calorie Control Diet Discharge Activity: May Drive Weight Bearing Status: No weight bearing Remove Dressing in: leave in place till F/U DC O2, CPAP, BIPAP Needs Home O2 Discharge instructions: No Additional Instructions: elevate, ice and f/u in 10 days Meaningful Use Info Meaningful Use Meaningful Use Diagnoses (Choose all that apply): None applicable Ischemic Stroke Statin Dosing Therapy Reference: STATIN DOSE THERAPY REFERENCE: * Patients > 75 years receive moderate or high dose statin therapy. * Patients 75 years or YOUNGER should receive HIGH intensity statin dose unless contraindicated. You will be required to document reason for non-treatment if statin daily dose does not meet guidelines. HIGH DOSE STATIN THERAPY DAILY Atorvastatin > than or = to 40 mg Rosuvastatin > than or = to 20 mg Amlodipine + Atorvastatin > than or = to 2.5/40 mg Ezetimibe + Simvastatin 10/80 mg Simvastatin 80mg Discharge Plan Admission Admit Date/Time: 09/22/24 01:51 Primary Reason for Your Visit: fx tibia left ankle Attending Provider: Chris Veloz Primary Care Provider: Bryan Dykes Discharge Orders/Prescriptions Prescriptions: No Action thioridazine 25 mg tablet 25 mg PO BID PRN PRN (Reason: hiccoughs) Referrals / Follow Up: Bryan Dykes DO [Primary Care Provider] - Disposition Disposition (needs filled in before D/C Order can be placed): Home, Self Care
== END 2024-09-28 19:40 | disposition home or self-care (01) | DRG 493 ==
LOC: ED 22:28 → MS3 09-22 02:15
PROVIDERS: Anesthesiology; Admitting Provider Podiatrist Foot & Ankle Surgery; Emergency Provider Emergency Medicine; PCP Student in an Organized Health Care Education/Training Program; Visit Provider Podiatrist Foot & Ankle Surgery
PROC: 0QSH35Z Reposition Left Tibia with External Fixation Device, Percutaneous Approach (ICD-10-PCS; principal; 2024-09-22 17:30)
PROC: 0QSH04Z Reposition Left Tibia with Internal Fixation Device, Open Approach (ICD-10-PCS; principal; 2024-09-25 14:10)
DX: S82.872A Displaced pilon fracture of left tibia, initial encounter for closed fracture (principal); T84.84XA Pain due to internal orthopedic prosthetic devices, implants and grafts, initial encounter; K59.03 Drug induced constipation; S50.312A Abrasion of left elbow, initial encounter; S93.01XA Subluxation of right ankle joint, initial encounter; W17.89XA Other fall from one level to another, initial encounter; T81.89XA Other complications of procedures, not elsewhere classified, initial encounter; M65.972 Unspecified synovitis and tenosynovitis, left ankle and foot
CPT/HCPCS: 36415; 73590; 73600; 73610; 73700; 76000; 80048; 85025; 85610; 85730; 86850; 86900; 86901; 93005; 97116; 97162; 97530; 99285; C1713; A4216; J2405

== ENCOUNTER 2024-11-06 08:24 | Day surgery (SDC) | payer OTHER, SELFPAY ==
[2024-11-06] VITALS (11 sets, daily range): BP systolic 112–143; BP diastolic 71–89; PULSE 65–78; RESP 12–18; TEMP 36.1–36.9; O2SAT 92–95; BMI 28.1
[2024-11-06] MEDS: 0.9% Normal Saline (1000mL) 1,000 ML 15 ML IV (09:16)
--- NOTE | 2024-11-06 09:28 | PRE.ANES_ITS ---
ASA Classification* ASA Classification ASA Classification: 2 Assessment & Plan Anesthesia* Anesthesia Assessment Anesthesia Assessment: Discussed sedation and/or anesthesia options, risks, benefits, and alternatives with patient/parents/legal guardian/POA. Questions invited. The patient/parents/legal guardian/POA seems to understand and agrees to proceed with anesthesia plan. Reviewed the physical assessment, medical history, allergy history and patient home medications list prior to surgery/procedure/anesthetic and documented any changes. Performed airway and anesthesia risk assessments. Anesthesia Type Anesthesia Type: General and Block Anesthesia Focused Assessment* Temperature: 98.4 F Pulse Rate: 70 Blood Pressure: 112/71 Respiratory Rate: 16 Pulse Ox: 95 Airway Assessment Mouth opens: >3 cm Mallampati Score: II Focused Labs Anesthesia Preop lab: CBC WBC 9.1 K/mm3 (4.4-11.0) 09/25/24 05:30 09/25/24 RBC 4.80 M/mm3 (4.6-6.2) 09/25/24 05:30 09/25/24 Hgb 16.0 g/dL (13.0-16.5) 09/25/24 05:30 09/25/24 Hct 44.5 % (40-54) 09/25/24 05:30 09/25/24 Plt Count 210 K/mm3 (150-450) 09/25/24 05:30 09/25/24 CHEMISTRY Potassium 3.6 mmol/L (3.5-5.1) 09/25/24 05:30 09/25/24 Sodium 138 mmol/L (136-145) 09/25/24 05:30 09/25/24 BUN 10 mg/dL (7-18) 09/25/24 05:30 09/25/24 Creatinine 0.91 mg/dL (0.70-1.30) 09/25/24 05:30 09/25/24 Glucose 109 mg/dL (74-106) H 09/25/24 05:30 09/25/24 COAG PT 14.8 SECONDS (11.7-14.9) 09/22/24 01:00 Pre-Assessment Diagnosis/Proposed Procedure Planned Operative Procedure(s): LT ANKLE ATHROSCOPY W/DEBRIDEMENT, STRESS VIEWS LEFT ANKLE, BONE MARROW ASPIRATION LEFT HEEL Anesthesia History 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 When Was Last Pacemaker Check QUESTION #4 FULL TEXT: You/Your Family Experience fever (hyperthermia) with Anesthesia Last Oral Intake Last Oral intake: Last Oral Intake NPO since 18:00 11/06/24 09:10 Meds taken in AM with sips of No 11/06/24 09:10 water? Meds patient instructed to take am of surgery PONV PONV - utility bill collection clerk: PONV - utility bill collection clerk Female No 10/29/24 15:06 HX of Motion Sickness No 10/29/24 15:06 HX of N/V After Surgery No 10/29/24 15:06 Non-Smoker Yes 10/29/24 15:06 Duration of Surgery greater No 10/29/24 15:06 than 60 minutes Number of Risk Factors 1 10/29/24 15:06 PONV Score Low Risk 10/29/24 15:06 Height & Weight Height & Weight: Anesthesia: Height & Weight Height 5 ft 10 in 11/06/24 09:10 Weight: 88.904 kg 11/06/24 09:10 Body Mass Index (BMI) 28.1 11/06/24 09:10 Respiratory Assessment Respiratory Assessment - utility bill collection clerk: Respiratory Tract Infection Hx - utility bill collection clerk Hx Respiratory Tract Infection No 10/29/24 15:06 STOP Sleep Apnea STOP Sleep Apnea - utility bill collection clerk: STOP Sleep Apnea - utility bill collection clerk Hx Hypertension No 10/29/24 15:06 Hx Sleep Apnea No 10/29/24 15:06 CPAP BIPAP Do you snore loudly (louder No 10/29/24 15:06 than talking or can be heard Do you often feel tired/ No 10/29/24 15:06 fatigued/ sleepy during daytime? Has anyone observed you stop No 10/29/24 15:06 breathing during sleep? STOP Results Negative 10/29/24 15:06 QUESTION #5 FULL TEXT : Do you snore loudly (louder than talking or can be heard through closed doors)? Tobacco Use History Tobacco Use History - utility bill collection clerk: Tobacco Use History - utility bill collection clerk Tobacco Use Smoking Status Never smoker 10/29/24 15:06 Hx Tobacco Use No 10/29/24 15:06 Years Smoking Packs Smoked per Day Smoking Cessation Date was within the last 15 years Hx Smoking Cessation Date Hx Smoking Cessation Counseling Hematologic Medial History Hematologic Hx - utility bill collection clerk: Hematologic Medical Hx - documentation nurse Hx of Blood Transfusion No 10/29/24 15:06 Hx of Transfusion in last 3 No 10/29/24 15:06 Months Date of Last Transfusion (if within last 3 months) Ever experience any problems No 10/29/24 15:06 with transfusion(s)? Specify any problems Hx of Preganancy in last 3 N/A 10/29/24 15:06 Months Nurse Filling Out Transfusion [facility] 10/29/24 15:06 & Questions: Date: 10/29/24 10/29/24 15:06 Time: 15:15 10/29/24 15:06 Patient unable to answer at this time (ie. confused, unrespo /Reproduction History /Reproductive History - utility bill collection clerk: /Reproductive Hx- utility bill collection clerk Hx Now Gestational Age (in weeks): EDC: Hx Hx Para Hx Section SAB No 09/24/24 21:32 Active Medications Active Medications: Current Medications Generic Name Dose Route Start Last Admin Trade Name Freq PRN Reason Stop Dose Admin Sodium Chloride 1,000 mls @ 15 mls/hr 11/06/24 08:40 11/06/24 09:16 IV 11/11/24 21:59 15 mls/hr .Q48H EMANUEL Administration Protocol PFS Medical History (Updated 10/29/24 @ 15:13 by Shawna Hendricks) Bruising Walker as ambulation aid Arthritis Gastric reflux Non-smoker Fracture of distal end of tibia Fracture of tibia, left, closed Home Medications ?Medication ?Instructions ?Recorded ?Last Taken ?Type thioridazine 25 mg tablet 25 mg PO BID PRN PRN hiccoug hs 10/29/24 Unknown History Allergy/AdvReac Type Severity Reaction Status Date / Time No Known Allergies Allergy Verified 11/06/24 08:55 Surgical History (Updated 10/29/24 @ 15:07 by Shawna Hendricks) History of ankle surgery Social History Smoking Status: Never smoker Review of Systems (Anesthesia) ROS Narrative System reviewed and no additional complaints, except as documented.
--- NOTE | 2024-11-06 10:03 | PCM.HP.STD ---
HPI - General General Date of Admission: 11/06/24 Date of Service: 10/06/24 Chief Complaint: painful ankle left post fx left lower leg HPI Narrative KALIE ANDREW, is a 64 M who presents with painful ankle post fx repair and chronic soreness and early arthritis [facility] Medical History Bruising Walker as ambulation aid Arthritis Gastric reflux Non-smoker Fracture of distal end of tibia Fracture of tibia, left, closed Home Medications ?Medication ?Instructions ?Recorded ?Last Taken ?Type thioridazine 25 mg tablet 25 mg PO BID PRN PRN hiccoughs 10/29/24 Unknown History Allergy/AdvReac Type Severity Reaction Status Date / Time No Known Allergies Allergy Verified 11/06/24 08:55 Surgical History (Updated 10/29/24 @ 15:07 by Shawna Hendricks) History of ankle surgery Social History Smoking Status: Never smoker Vital Signs Vital Signs Vital Signs: 11/06/24 09:10 11/06/24 09:10 11/06/24 09:29 Temperature 98.4 F 98.4 F Temperature Source Temporal Pulse Rate 70 70 Respiratory Rate 16 16 Respiratory Pattern Normal Blood Pressure 112/71 112/71 Blood Pressure Mean 84 Blood Pressure Source Monitor Blood Pressure Position Semi-Fowlers Blood Pressure Location Left Arm Pulse Ox 95 95 Oxygen Delivery Method Room Air Weight Weight: 88.904 kg Body Mass Index (BMI) 28.1 Physical Exam Narrative chronic swelling and lower leg pain to the left ankle and continued swelling soreness to the front of the left ankle. pain along stephy area of the joint with stiffness post tibial fx and pilon fx left lower leg Assessment & Plan Assessment/Plan (1) Pilon fracture of right tibia: (2) Synovitis of left ankle: PLAN: Plan plan for ankle arthroscopy left ankle and bone marrow harvest left lower leg
[2024-11-06] MEDS: Bupiv/Epi 0.25% 30 ML Vial (10:20)
[2024-11-06] MEDS: Cefazolin 2 GM in Syringe IV (10:30)
--- NOTE | 2024-11-06 11:00 | RAD_ITS ---
PROCEDURE: ANKLE 2 VIEWS; O.R. FLUORO FOR C-ARM REASON FOR EXAM: Stress view in OR. TECHNIQUE: Intraoperative fluoroscopy, also with 2 fluoroscopic images obtained. COMPARISON: Left ankle study 09/25/2024 RAD/Ankle 2 Views IMPRESSION: Intraoperative fluoroscopy was performed. 2 fluoroscopic images were also obtained. Satisfactory alignment of the ankle mortise is noted on both. Reading Location: [id number]
--- NOTE | 2024-11-06 11:00 | RAD_ITS ---
PROCEDURE: ANKLE 2 VIEWS; O.R. FLUORO FOR C-ARM REASON FOR EXAM: Stress view in OR. TECHNIQUE: Intraoperative fluoroscopy, also with 2 fluoroscopic images obtained. COMPARISON: Left ankle study 09/25/2024 RAD/O.R. Fluoro for C-Arm IMPRESSION: Intraoperative fluoroscopy was performed. 2 fluoroscopic images were also obtained. Satisfactory alignment of the ankle mortise is noted on both. Reading Location: [id number]
--- NOTE | 2024-11-06 11:34 | PCM.OPRPT ---
Problems Associated Problem List Diagnoses (1) Synovitis of left ankle: (2) Pilon fracture of right tibia: Operative Report (Standard) Operative Information Date of Procedure: 11/06/24 Pre-Operative Diagnosis: Ankle synovitis left lower extremity Status post fracture tibial fracture with intra-articular fracture Ankle sprain Post-Operative Diagnosis: Same as above Surgery/Procedure Performed: 1. Extensive debridement with ankle arthroscopy left lower extremity 2. Bone marrow harvest large left tibia 3. Stress views left ankle 4. Delayed primary closure left lateral heel in which the patient had a incision before. noise tester: No Type of Anesthesia: Block,Regional and General/Supplemental RN Documented Start/Stop Times: Operation Date: 11/06/24 10:00 Case Time Into Pre-Op 11/06/24 08:38 Anesthesia Start 11/06/24 10:19 Into Room 11/06/24 10:19 Out of Pre-Op 11/06/24 10:19 Procedure Start 11/06/24 10:40 Procedure End 11/06/24 11:28 Anesthesia End 11/06/24 11:31 Out of Room 11/06/24 11:31 Into Recovery 11/06/24 11:32 Procedure Start Time: 10:40 Procedure Stop Time: 11:28 Select all DRAINS/GRAFTS/IMPLANTS that apply: None Estimated Blood Loss: 10 Specimen collected: No Description of surgery: Patient is a very well-known patient of mine at [facility] [place] which the patient has had a tibial fracture that was intra-articular of his lower leg along with a malleolus fracture that occurred about 6 weeks ago. Patient had surgery with a external fixation frame for relocation as well as stabilization and then had ORIF of the left lower leg that occurred about 6 weeks ago. The patient tolerated procedure well at that time during the phase the patient has been nonweightbearing I recommended to scope the ankle to check and see how his tibia has been repaired or if there was any articular damage and or chronic lower extremity ankle synovitis versus early arthritis. The patient does understand at this point he agrees with surgical intervention we have tried conservative methods at this point this is a staged procedure patient would like to proceed patient was seen in the preoperative holding her chart is reviewed and consent was signed. Patient was given 2 g Ancef patient was given a popliteal block per anesthesia. The patient was then placed in the operating room placed on the table in normal supine position ipsilateral bump was placed underneath the left lower leg at that point then general anesthetic was then obtained a local block of quarter percent Marcaine with epinephrine was injected into the left ankle for total of 10 cc we then scrubbed prepped and draped usual aseptic technique with the left lower extremity. At that point then timeout was then performed I then insufflated the joint with 30 cc of lactated Ringer's and then we made a medial portal after I made a medial incision I then punctured it with the obturator and cannula then inserted the arthroscope turned on the lactated Ringer's at that point then we did a 16 point inspection of the ankle joint checking for all areas as well as going as far as the medial gutter and the lateral gutter itself. At that point then I used a probe I checked the cartilage for any damage to his smooths I actually checked for step-off the tibial plafond could not see any signs of a change of the tibial plafond. At that point then we made a another incision laterally for the shaver and a greater we then used extensive debridement the shaver and ablator to remove all the hemorrhagic synovitis I took pictures pre and post we then used a ablator and then Coblator the area to allow for shrinking of any other degenerative tissue and or synovitic tissue at that point with signs of damage at the same time there was also fibrous bands within the joint itself which then had to be cleaned out. After doing so we then flushed the area we then closed the incisions with 4-0 nylon. Then I made an incision on the lateral of the anterior lower leg near the tibial metadiaphyseal area once incised and then I placed the trocar into the tibia and then pulled out 60 cc of bone marrow aspirate a large bone graft harvest was then performed flushed the incision closed with 4-0 nylon. Attention is then directed the lateral calcaneus in which the patient had a previous incision from a bone marrow harvest from his last incision this was more of a second-degree burn and a ulcer at that point then I made a 3-1 ellipse along the lateral side of the calcaneus adding out the remaining necrotic skin connate down to the subcutaneous tissue and then flushed and then closed with 3-0 Prolene in a delayed primary closure the wound was then closed in such a way to bring the skin edges back together with simple erupted suture technique. The rest of the lower extremities and washed and cleansed at that point then we then covered all the incision with Xeroform multilayer compression bandage was applied from the toes to the knee At that point then stress views was then performed in which we used the fluoroscopy I then stressed the ankle medially and laterally showing that there was no signs of lateral instability or medial instability check I also took x-rays to check for the healing of the plate and screws it seemed as though the tibia appeared to be healed I would allow him to be partial weightbearing postoperatively. He tolerated procedure well without complications was sent back to the recovery room with vital signs stable and vascular status intact left lower extremity I gave him Percocet for pain follow-up then. Surgical Findings: Patient intraoperatively had hemorrhagic synovitis along with some fraying of the cartilage but actually it it appeared that the tibial plafond was back in place and there is no step-off. Minimal arthritic changes Complications Complications: No
--- NOTE | 2024-11-06 11:40 | PCM.POST.ANE ---
Anesthesia: Postop Eval I Current Vital Signs Temperature: 97.2 F Pulse Rate: 78 Blood Pressure: 125/84 Respiratory Rate: 12 Pulse Ox: 94 Oxygen Delivery Method: Nasal Cannula Oxygen Flow Rate (L/min): 4 Assessment Airway patent: Yes Spontaneous unlabored respirations: Yes Mental status: Asleep nausea: No Vomiting: No Anesthesia Complication: No Fluid Hydration Crystalloid volume administer (ml): 1,000 Total IV fluid infused: 1,000 Progress Note Anesthesia document: Postop Eval 1 completed: Yes
--- NOTE | 2024-11-06 12:09 | PCM.DC ---
Discharge Instructions Diet Discharge Diet: No restrictions DC O2, CPAP, BIPAP needs Home O2 Discharge instructions: No Dressing / Incision Discharge Activity: Use Crutches May resume sexual activity in: No Restrictions Weight Bearing Status: Partial weight bearing Dressing / Incision Call your doctor if your incision/area has: Sudden Increased Bleeding, Increased Pain/ Swelling and Increased Redness Call your doctor if you observe: Fever of 101 or Higher Change Dressing in: do not change dressing Remove Dressing in: do not remove dressing Cleanse incision/area with: Keep Dressing Clean & Dry Follow Up Care Please Follow Up With: Chris Veloz MD When: 10 days Test Results: Test results from this visit will be discussed in further detail at your follow-up appointment, if applicable. Discharge Plan Admission Primary Reason for Your Visit: ankle surgery Attending Provider: Chris Veloz Primary Care Provider: Bryan Dykes Instructions Additional Instructions / Restrictions: elevate, reinforce, take pain medications, pwb with camwalker Print Language: Cymraes Discharge Orders/Prescriptions Prescriptions: No Action thioridazine 25 mg tablet 25 mg PO BID PRN PRN (Reason: hiccoughs) Referrals / Follow Up: Bryan Dykes DO [Primary Care Provider] - Disposition Disposition (needs filled in before D/C Order can be placed): Home, Self Care
--- NOTE | 2024-11-06 12:11 | POSTOPAN2_ITS ---
Anesthesia Postop Eval I Sum Postop Eval Completion status Anesthesia document: Postop Eval 1 completed: Yes Anesthesia Postop Eval I Summary Anesthesia Postop Eval I Summary: Anesthesia Postop Eval I: Assessment Summary Airway patent Yes 11/06/24 11:41 ICING AND GLAZE MAKER.APAT Spontaneous unlabored Yes 11/06/24 11:41 ICING AND GLAZE MAKER.APAT respirations Mental status Asleep 11/06/24 11:41 ICING AND GLAZE MAKER.APAT nausea No 11/06/24 11:41 ICING AND GLAZE MAKER.APAT Vomiting No 11/06/24 11:41 ICING AND GLAZE MAKER.APAT Anesthesia Postop Eval I: Fluid Summary Crystalloid volume administer 1,000 11/06/24 11:41 ICING AND GLAZE MAKER.APAT (ml) Colloids volume administered ( ml) Blood Product volume administered (ml) Total IV fluid infused 1,000 11/06/24 11:41 ICING AND GLAZE MAKER.APAT Anesthesia Postop Eval I: Summary Notes Anesthesia Complication No 11/06/24 11:41 ICING AND GLAZE MAKER.APAT Anesthesia Complication Comment: Post-operative progress note Anesthesia: Postop Eval II Evaluation Mental status: Awake Pain Level: 0 nausea: No Vomiting: No
--- NOTE | 2024-11-06 12:11 | PCM.POSTANE2 ---
Anesthesia Postop Eval I Sum Postop Eval Completion status Anesthesia document: Postop Eval 1 completed: Yes Anesthesia Postop Eval I Summary Anesthesia Postop Eval I Summary: Anesthesia Postop Eval I: Assessment Summary Airway patent Yes 11/06/24 11:41 FONDANT COOKER.APAT Spontaneous unlabored Yes 11/06/24 11:41 FONDANT COOKER.APAT respirations Mental status Asleep 11/06/24 11:41 FONDANT COOKER.APAT nausea No 11/06/24 11:41 FONDANT COOKER.APAT Vomiting No 11/06/24 11:41 FONDANT COOKER.APAT Anesthesia Postop Eval I: Fluid Summary Crystalloid volume administer 1,000 11/06/24 11:41 FONDANT [email or web address].APAT (ml) Colloids volume administered ( ml) Blood Product volume administered (ml) Total IV fluid infused 1,000 11/06/24 11:41 FONDANT COOKER.APAT Anesthesia Postop Eval I: Summary Notes Anesthesia Complication No 11/06/24 11:41 FONDANT COOKER.APAT Anesthesia Complication Comment: Post-operative progress note Anesthesia: Postop Eval II Evaluation Mental status: Awake Pain Level: 0 nausea: No Vomiting: No
== END 2024-11-06 13:06 | disposition home or self-care (01) ==
LOC: SDC 08:25 → AC 08:29
PROVIDERS: PCP Student in an Organized Health Care Education/Training Program; Referring Provider Podiatrist Foot & Ankle Surgery; Visit Provider Podiatrist Foot & Ankle Surgery
PROC: (CPT 29898; principal; 2024-11-06 09:45)
DX: S82.871A Displaced pilon fracture of right tibia, initial encounter for closed fracture (principal); S93.402A Sprain of unspecified ligament of left ankle, initial encounter; X58.XXXA Exposure to other specified factors, initial encounter
CPT/HCPCS: 29898; 38220; 01464; 64450; 73600; 76000; J2405